=== PATIENT | male | born 1960 | race Caucasian/White ===

== ENCOUNTER 2024-07-14 00:46 | Emergency (ER) | payer BC, SELFPAY ==
[2024-07-14 01:02] VITALS: BP 142/75
[2024-07-14 01:22] LABS: % Basophils 0.2 % (0-2); % Eosinophils 0.1 % (0-6); % Immature Granulocytes 0.5 % (0-0.5); % Lymphocytes 7.5 % (20.5-51.1); % Monocytes 8.9 % (1.7-9.3); % Neutrophils 82.8 % (42.2-75.2); Absolute Immature Granulocytes 0.1 10^3/uL (0-0.05); Absolute Lymphocytes 1.1 10^3/uL (1.2-3.4); Absolute Monocytes 1.3 10^3/uL (0.1-0.6); Absolute Neutrophils 12.1 10^3/uL (1.4-6.5); Hematocrit 41.8 % (39.0-52.0); Hemoglobin 14.6 g/dL (13.0-18.0); Mean Corp Hgb Conc. 34.9 g/dL (33.0-37.0); Mean Corpuscular Hgb 30.2 pg (27.0-31.0); Mean Corpuscular Volume 86.5 fL (80.0-94.0); Mean Platelet Volume 10.1 fL (7.4-10.4); Nucleated Red Blood Cells % 0 % (-); Platelet Count 189 10^3/uL (130-400); Red Blood Cell Count 4.83 10^6/uL (4.70-6.10); Red Cell Dist. Width 12.2 % (11.5-14.5); White Blood Cell Count 14.6 10^3/uL (4.8-10.8)
[2024-07-14 01:41] LABS: ALT (SGPT) 23 U/L (0-50); AST (SGOT) 24 U/L (17-59); Albumin 4.2 g/dl (3.5-5.0); Alkaline Phosphatase 69 U/L (38-126); Blood Urea Nitrogen 18 mg/dl (9-20); Calcium 9.3 mg/dl (8.4-10.2); Carbon Dioxide 28 mmol/L (22-30); Chloride 101 mmol/L (98-107); Glucose 128 mg/dl (70-99); Lipase 58 U/L (23-300); Potassium 4.4 mmol/L (3.5-5.1); Sodium 137 mmol/L (135-145); Total Bilirubin 1.7 mg/dl (0.2-1.3); eGFR > 60.00
--- NOTE | 2024-07-14 02:05 | ED.GENMED ---
History of Present Illness
General
Chief Complaint: Abdominal Pain
Source: patient and family
Exam Limitations: none
Time Seen by Provider: 07/14/24 02:05
Nursing documentation reviewed up to this point in time: agreed with
History of Present Illness
History of Present Illness:
Pleasant 64-year-old male presents the emergency department with left lower quadrant abdominal pain. He initially awakened this morning with the pain and it waxed and waned throughout the day states that she. He had 1 episode of diarrhea which was
nonbloody but that did not alleviate or exacerbate the symptoms he has no nausea vomiting patient has been feeling warm and flushed. Denies history of kidney stones. States he has never had pain like this before he states that it feels sharp when
he presses on his mid lateral abdomen. Denies chest pain or shortness of breath.
Patient has a past medical history significant only for subarachnoid hemorrhage.
Past History
Past History
ED Past Medical History: None
ED Past Surgical History: Other (Sinus surgery)
Social History
Tobacco: Non-smoker
Alcohol: Occasional
Drug: None
Personal:
Living: with family
Employment: Employed
Family History
Family History: Other
Review of Systems
Review of Systems
Allergies reviewed?: Yes
Other source history: family
All Other Systems: ROS reviewed and negative except as documented in HPI and ROS
Constitutional: Reports no symptoms
EENT: Reports no symptoms
Respiratory: Reports no symptoms
Cardiac: Reports no symptoms
ABD/GI: Reports abdominal pain and diarrhea; Denies nausea, vomiting, constipated, bloody stools or black stools
: Reports no symptoms
Musculoskeletal: Reports no symptoms
Skin: Reports no symptoms
Neurological: Reports no symptoms
Endocrine: Reports no symptoms
Hematologic/Lymphatic: Reports no symptoms
Psychiatric: Reports no symptoms
Phy Exam
General Physical Exam
General Presentation: well appearing and no apparent distress
General Skin: warm and dry
General Habitus: normal
General Mental: alert
General Hydration: appears well hydrated
ENT Exam
ENT Exam: EOMI, pharynx normal, neck supple and normocephalic
Eye Exam
Eye Exam: PERRL, cornea clear and conjunctiva normal
Cardiovascular Exam
Cardiovascular Exam: regular rate/rhythm, no edema, no murmur and normal peripheral pulses
Pulmonary Exam
Pulmonary Exam: lungs clear, no respiratory distress, no rales, no crackles, no rhonchi, no stridor, no wheezing and no cough
Gastrointestinal Exam
Gastrointestinal Exam: normal bowel sounds, non tender, soft, no organomegaly, no pulsatile mass, non distended and no cva tenderness
Neurological Exam
Neurological Exam: alert, oriented x3, no motor deficits and speech normal
Musculoskeletal Exam
Musculoskeletal Exam: full ROM and no edema
Skin Exam
Skin Exam: normal color, warm/dry, no rash and no petechia
Psychiatric Exam
Psychiatric Exam: normal mood/affect
Course
Orders/Labs/Results
Orders:
Orders
07/14/24 01:09
IV Insert/Care/Rem.- Treatment PRN
07/14/24 01:15
Complete Blood Count/With Diff Urgent
Comprehensive Metabolic Panel Urgent
Lipase Urgent
Urinalysis Reflex To Culture Urgent
Date Specimen was Collected: 07/14/24
Time Specimen was Collected: 01:09
07/14/24 02:06
CT Abd/pelvis W Iv Cont Urgent
Comment:
Reason For Exam: LLQ pain
07/14/24 02:15
Ketorolac [Toradol] 15 mg IV NOW STA
Abnormal Lab Results
07/14/24
01:15
WBC 14.6 H 10^3/uL
(4.8-10.8)
Abs Immat Gran (auto) 0.1 H 10^3/uL
(0-0.05)
Absolute Neuts (auto) 12.1 H 10^3/uL
(1.4-6.5)
Absolute Lymphs (auto) 1.1 L 10^3/uL
(1.2-3.4)
Absolute Monos (auto) 1.3 H 10^3/uL
(0.1-0.6)
Neutrophils % 82.8 H %
(42.2-75.2)
Lymphocytes % 7.5 L %
(20.5-51.1)
Glucose 128 H mg/dl
(70-99)
Total Bilirubin 1.7 H mg/dl
(0.2-1.3)
07/14/24 01:15
07/14/24 01:15
Vital Signs
Initial and Last Documented VS:
Initial Vital Signs
Temp Pulse Resp BP Pulse Ox
100.2 F 88 20 142/75 99
07/14/24 01:02 07/14/24 01:02 07/14/24 01:02 07/14/24 01:02 07/14/24 01:02
Last Documented Vital Signs
Temp Pulse Resp BP Pulse Ox
100.2 F 70 18 140/77 98
07/14/24 01:02 07/14/24 04:32 07/14/24 04:32 07/14/24 03:00 07/14/24 04:32
*Critical Care Note
Total Time (30-74mins, 75-104mins- exclusive of procedures): Not Applicable
Update Note
Update Note:
CT ABDOMEN PELVIS WITH CONTRAST
COMPARISON: None
IMPRESSION:
Acute diverticulitis of the descending colon with moderate pericolonic inflammation. No perforation or abscess.
Normal appendix. No bowel obstruction. No free air.
The distal part of a presumed ventriculoperitoneal shunt has its tip in the right paracolic gutter.
No obstructive uropathy.
No concerning bone finding.
Case results were faxed/electronically transmitted at [id number] EST. If there are any questions please feel free to contact me directly at [phone], ext [phone]. If you cannot reach me at this number, do not leave a voicemail. Please call [phone]
ext [phone] and ask for the next available radiologist.
ED Attending Note
-
Portions of this chart may have been created with voice recognition software.� Occasional wrong word or��sound alike� substitutions may have occurred due to the inherent limitations of voice recognition software.
Discharge Plan
Departure
Patient Disposition: Home (Routine Discharge)
Date of Disposition: 07/14/24
Time of Disposition: 04:56
Patient with high blood pressure during this ER visit?: Yes
Discharge Problem:
Diverticulitis
Instructions: Diverticulitis (DC), Abdominal Pain
Prescriptions:
New
amoxicillin-pot clavulanate 875-125 mg tablet
1 tab PO BID Qty: 20 0RF
Referrals:
Shantell Kenney MD [Family Provider] -
Activity Restrictions/Additional Instructions:
It was a pleasure meeting you and taking part in your care. We hope for your continued healing and wellness.
Please read discharge instructions in their entirety. However, they are for general education and may not describe your exact diagnosis at discharge. Information on your ER visit and medical conditions were discussed with you along with appropriate
follow up information...
If indicated, please take your medications as instructed and indicated on discharge paperwork.
Please schedule a follow up appointment as directed. Call to schedule an appointment
Please return to the emergency department with ANY change in, persisting, or worsening of symptoms. If any of your symptoms do not improve, or persist, or become more severe within 6-12 hours, please return to the emergency department for further
care.
Please return to the emergency department if you develop a headache, neck pain/stiffness, fever greater than 100.4F, chest pain, shortness of breath, persistent nausea, vomiting, slurred speech, difficulty walking, numbness/tingling, weakness, signs
of infection or any other symptoms that are worrisome to you.
If you have any questions or concerns please do not hesitate to call the Hospital at or E-mail me directly at [email or web address]
Interventions
Interventions:
*Risk Screen - Suicide Last Done: 07/14/24 01:02
*General Assessment Last Done: 07/14/24 01:02
*Neglect/Abuse Screening Last Done: 07/14/24 01:02
ED- Fall Risk Assessment Last Done: 07/14/24 01:02
*ED COVID-19 Vaccine History Last Done: 07/14/24 01:02
EC-Vfphpr-Bgxwygkpee Assessment Last Done: 07/14/24 02:15
Discharge Date and Time
Print Language: BELIZEAN
[2024-07-14 02:14] VITALS: BMI 30.3
[2024-07-14] MEDS: TORADOL 15 MG IV (02:21)
[2024-07-14 02:25] VITALS: BP 150/82
[2024-07-14 03:00] VITALS: BP 140/77
[2024-07-14 03:09] LABS: Urine Albumin Negative (Neg - Trace); Urine Bilirubin Negative (Negative); Urine Character Clear (Clear); Urine Color Yellow; Urine Glucose Negative (Negative); Urine Ketone Negative (Negative); Urine Leukocyte Negative (Negative); Urine Nitrite Negative (Negative); Urine Occult Blood Negative (Negative); Urine Urobilinogen Negative (Neg - 1+)
[2024-07-14 04:20] VITALS: BP 141/68
[2024-07-14 05:00] VITALS: BP 139/75
[2024-07-14] MEDS: AUGMENTIN 875 MG/125 MG 1 TABLET PO (05:16)
== END 2024-07-14 05:25 | disposition home or self-care (01) ==
LOC: EMR 00:46
PROVIDERS: EMERGENCY PHYSICIAN Student in an Organized Health Care Education/Training Program; FAMILY PHYSICIAN Family Medicine
DX: K57.32 Diverticulitis of large intestine without perforation or abscess without bleeding (principal); R03.0 Elevated blood-pressure reading, without diagnosis of hypertension
CPT/HCPCS: 74177; 80053; 81003; 83690; 85025; 96374; 99284; Q9967

== ENCOUNTER 2024-07-15 04:27 | Inpatient (IN) | payer BC, SELFPAY ==
[2024-07-14 19:30] VITALS: BP 148/88
[2024-07-14 19:50] LABS: % Basophils 0.3 % (0-2); % Eosinophils 0.5 % (0-6); % Immature Granulocytes 0.1 % (0-0.5); % Lymphocytes 9.6 % (20.5-51.1); % Monocytes 3.3 % (1.7-9.3); % Neutrophils 86.2 % (42.2-75.2); Absolute Lymphocytes 0.7 10^3/uL (1.2-3.4); Absolute Monocytes 0.3 10^3/uL (0.1-0.6); Absolute Neutrophils 6.5 10^3/uL (1.4-6.5); Hematocrit 40.9 % (39.0-52.0); Hemoglobin 14.2 g/dL (13.0-18.0); Mean Corp Hgb Conc. 34.7 g/dL (33.0-37.0); Mean Corpuscular Hgb 30.1 pg (27.0-31.0); Mean Corpuscular Volume 86.8 fL (80.0-94.0); Mean Platelet Volume 9.9 fL (7.4-10.4); Nucleated Red Blood Cells % 0 % (-); Platelet Count 163 10^3/uL (130-400); Red Blood Cell Count 4.71 10^6/uL (4.70-6.10); Red Cell Dist. Width 12.4 % (11.5-14.5); White Blood Cell Count 7.5 10^3/uL (4.8-10.8)
[2024-07-14 20:07] LABS: ALT (SGPT) 23 U/L (0-50); AST (SGOT) 24 U/L (17-59); Albumin 4.2 g/dl (3.5-5.0); Alkaline Phosphatase 61 U/L (38-126); Blood Urea Nitrogen 17 mg/dl (9-20); Calcium 8.7 mg/dl (8.4-10.2); Carbon Dioxide 30 mmol/L (22-30); Chloride 96 mmol/L (98-107); Glucose 123 mg/dl (70-99); Potassium 3.8 mmol/L (3.5-5.1); Sodium 135 mmol/L (135-145); Total Bilirubin 2.5 mg/dl (0.2-1.3); Total Protein 6.6 g/dl (6.3-8.2); eGFR > 60.00
--- NOTE | 2024-07-14 20:28 | ED.GENMED ---
Addendum entered and electronically signed by Ilia Easley DO 07/15/24 01:43:
CRITICAL CARE STATEMENT: A total of 20 minutes of critical care time was provided for this patient. This includes management of unstable vital signs, evaluation of the patient at bedside, reviewing the patient's pertinent medical records discussion
with EMS providers and patient's family in addition to discussion with consultants, review of old EKGs and review of pertinent medical records. This time with separate from time utilized to perform the aforementioned documented procedures
Original Note:
History of Present Illness
<Araceli Middleton NP - Last Filed: 07/15/24 00:45>
General
Chief Complaint: Abdominal Pain
Source: patient
Exam Limitations: none
Time Seen by Provider: 07/14/24 20:21
Nursing documentation reviewed up to this point in time: agreed with
History of Present Illness
History of Present Illness:
Patient to ED with complaint of bilateral lower abd. pain. He was seen her last PM for LLQ ppain and dx with diverticulitis. States tonight he felt like he needed to pass stool but was unable to. Pain then became much worse. States he became
diaphoretic and felt like he was going to pass out. Pain is now located acrosss lower abd. Brought to ED by spouse for eval.
Past History
<Araceli Middleton NP - Last Filed: 07/15/24 00:45>
Past History
ED Past Medical History: None
ED Past Surgical History: Other (Sinus surgery)
Social History
Tobacco: Non-smoker
Alcohol: Occasional
Drug: None
Personal:
Living: with family
Employment: Employed
Family History
Family History: Other
Review of Systems
<Araceli Middleton NP - Last Filed: 07/15/24 00:45>
Review of Systems
Allergies reviewed?: Yes
All Other Systems: ROS reviewed and negative except as documented in HPI and ROS
Constitutional: Reports no symptoms
EENT: Reports no symptoms
Respiratory: Reports no symptoms
Cardiac: Reports no symptoms
ABD/GI: Reports abdominal pain and nausea
: Reports no symptoms
Musculoskeletal: Reports no symptoms
Skin: Reports no symptoms
Neurological: Reports no symptoms
Psychiatric: Reports no symptoms
Phy Exam
<Araceli Middleton TAKE DOWN INSPECTOR - Last Filed: 07/15/24 00:45>
General Physical Exam
General Presentation: well appearing and no apparent distress
General age: appears stated age
General Skin: warm and dry
General Habitus: normal
Cardiovascular Exam
Cardiovascular Exam: regular rate/rhythm and no edema
Pulmonary Exam
Pulmonary Exam: lungs clear and no respiratory distress
Gastrointestinal Exam
Gastrointestinal Exam: normal bowel sounds, no pulsatile mass and guarding
Palpation: left upper quadrant: Minimal tenderness, left lower quadrant: Severe tenderness, right upper quadrant: Minimal tenderness and right lower quadrant: Severe tenderness
Musculoskeletal Exam
Musculoskeletal Exam: full ROM and neuro vasc intact
Skin Exam
Skin Exam: normal color, warm/dry and no rash
Psychiatric Exam
Psychiatric Exam: normal mood/affect
Course
<Araecli Middleton TAKE DOWN INSPECTOR - Last Filed: 07/15/24 00:45>
Orders/Labs/Results
Orders:
Orders
07/14/24 19:33
ECG [Electrocardiogram (*1)] Urgent
Reason for Study: Abdominal Pain
EKG- Treatment ONCE
07/14/24 19:45
Complete Blood Count/With Diff Urgent
Comprehensive Metabolic Panel Urgent
Lipase Urgent
Comment: ADDON
07/14/24 20:27
0.9% Sodium Chloride 1000 ml [Nss] 1,000 ml IV BOLUS
HYDROmorphone [Dilaudid] 0.5 mg IV NOW STA
Iohexol [Omnipaque] See Protocol PO NOW STA
Ondansetron Injectable [Zofran] 4 mg IV NOW STA
07/14/24 20:43
CT Abd/pelvis W Iv Cont Urgent
Comment:
Reason For Exam: bilateral lower abd pain, rigid abd.
07/14/24 21:21
Add On- LAB Urgent
Tests Added?: Lipase
07/14/24 22:03
Piperacillin/Tazo 3.375 Gram [Zosyn] 3.375 gram in 50 ml IV NOW
07/14/24 22:45
0.9% Sodium Chloride 1000 ml [Nss] 1,000 ml IV 125 mls/hr
07/14/24 23:24
Dexamethasone Sod Phosphate [Decadron] 20 mg .ROUTE .STK-MED ONE
Fentanyl Citrate/Pf [Sublimaze] 100 mcg .ROUTE .STK-MED ONE
Lidocaine 2% Mpf [Xylocaine Mpf 2%] 100 mg .ROUTE .STK-MED ONE
Midazolam HCl [Versed] 2 mg .ROUTE .STK-MED ONE
Ondansetron Injectable [Zofran] 4 mg .ROUTE .STK-MED ONE
Propofol [Diprivan] 20 ml .ROUTE .STK-MED
Rocuronium [place] [Rocuronium] 50 mg .ROUTE .STK-MED ONE
07/14/24 23:47
Bupivacaine Mpf 0.25% [Sensorcaine-Mpf 0.25% Vial] 60 ml .ROUTE .STK-MED ONE
Dexamethasone Pf [Decadron] 10 mg .ROUTE .STK-MED ONE
07/15/24 00:04
NORepinephrine 4 MG/250 ML [Levophed] 4 mg in 250 ml .ROUTE .STK-MED
07/15/24 00:09
Rocuronium [place] [Rocuronium] 50 mg .ROUTE .STK-MED ONE
07/15/24 00:10
Ketamine 5 ml .ROUTE .STK-MED
07/15/24 00:23
HYDROmorphone [Dilaudid] 0.25 mg IV PACU-Q5MPRN PRN
HYDROmorphone [Dilaudid] 0.5 mg IV PACU-Q5MPRN PRN
Meperidine [Demerol] 12.5 mg IV PACU-Q5MPRN PRN
Ondansetron Injectable [Zofran] 4 mg IV PACU-ONCEPRN PRN
Prochlorperazine [Compazine] 5 mg IV PACU-ONCEPRN PRN
Notify MD As Directed
Notify physician if: for SDS patients with known or suspected sleep obstructive sleep apnea, monitor in the
PACU.
Notify MD for any apneic/desaturation episodes
O2 Therapy [RESP] Urgent
Titrate/Wean O2 to maintain O2 sat greater than (%): 92
Special Instructions: -Provide supplemental oxygen to achieve O2 sat of 92% or greater.
-After 15 min, may wean O2 and discontinue if patient is able to maintain O2 sat of 92%
or greater during recovery period.
If patient is a discharge home, without oxygen therapy, notify anestheiologist if
unable to maintain O2 SAT of 92% or greater on room air for MD clearance.
07/15/24 00:26
HYDROmorphone [Dilaudid] 1 mg .ROUTE .STK-MED ONE
07/15/24 00:30
Normosol (Mult Electrolytes) [Normosol-R/Plasmalyte-A] 1,000 ml IV PER PROTOCOL
Abnormal Lab Results
07/14/24
19:45
Absolute Lymphs (auto) 0.7 L 10^3/uL
(1.2-3.4)
Neutrophils % 86.2 H %
(42.2-75.2)
Lymphocytes % 9.6 L %
(20.5-51.1)
Chloride 96 L mmol/L
(98-107)
Glucose 123 H mg/dl
(70-99)
Total Bilirubin 2.5 H mg/dl
(0.2-1.3)
07/14/24 19:45
07/14/24 19:45
Vital Signs
Initial and Last Documented VS:
Initial Vital Signs
Temp Pulse Resp BP Pulse Ox
98 F 72 22 148/88 100
07/14/24 19:30 07/14/24 19:30 07/14/24 19:30 07/14/24 19:30 07/14/24 19:30
Last Documented Vital Signs
Temp Pulse Resp BP Pulse Ox
98 F 87 16 121/74 96
07/14/24 19:30 07/14/24 23:27 07/14/24 23:27 07/14/24 23:00 07/14/24 23:30
<Ilia Easley, DO - Last Filed: 07/14/24 22:24>
Orders/Labs/Results
Orders:
Orders
07/14/24 19:33
ECG [Electrocardiogram (*1)] Urgent
Reason for Study: Abdominal Pain
EKG- Treatment ONCE
07/14/24 19:45
Complete Blood Count/With Diff Urgent
Comprehensive Metabolic Panel Urgent
Lipase Urgent
Comment: ADDON
07/14/24 20:27
0.9% Sodium Chloride 1000 ml [Nss] 1,000 ml IV BOLUS
HYDROmorphone [Dilaudid] 0.5 mg IV NOW STA
Iohexol [Omnipaque] See Protocol PO NOW STA
Ondansetron Injectable [Zofran] 4 mg IV NOW STA
07/14/24 20:43
CT Abd/pelvis W Iv Cont Urgent
Comment:
Reason For Exam: bilateral lower abd pain, rigid abd.
07/14/24 21:21
Add On- LAB Urgent
Tests Added?: Lipase
07/14/24 22:03
Piperacillin/Tazo 3.375 Gram [Zosyn] 3.375 gram in 50 ml IV NOW
07/14/24 22:45
0.9% Sodium Chloride 1000 ml [Nss] 1,000 ml IV 125 mls/hr
07/14/24 23:24
Dexamethasone Sod Phosphate [Decadron] 20 mg .ROUTE .STK-MED ONE
Fentanyl Citrate/Pf [Sublimaze] 100 mcg .ROUTE .STK-MED ONE
Lidocaine 2% Mpf [Xylocaine Mpf 2%] 100 mg .ROUTE .STK-MED ONE
Midazolam HCl [Versed] 2 mg .ROUTE .STK-MED ONE
Ondansetron Injectable [Zofran] 4 mg .ROUTE .STK-MED ONE
Propofol [Diprivan] 20 ml .ROUTE .STK-MED
Rocuronium [place] [Rocuronium] 50 mg .ROUTE .STK-MED ONE
07/14/24 23:47
Bupivacaine Mpf 0.25% [Sensorcaine-Mpf 0.25% Vial] 60 ml .ROUTE .STK-MED ONE
Dexamethasone Pf [Decadron] 10 mg .ROUTE .STK-MED ONE
07/15/24 00:04
NORepinephrine 4 MG/250 ML [Levophed] 4 mg in 250 ml .ROUTE .STK-MED
07/15/24 00:09
Rocuronium [place] [Rocuronium] 50 mg .ROUTE .STK-MED ONE
07/15/24 00:10
Ketamine 5 ml .ROUTE .STK-MED
07/15/24 00:23
HYDROmorphone [Dilaudid] 0.25 mg IV PACU-Q5MPRN PRN
HYDROmorphone [Dilaudid] 0.5 mg IV PACU-Q5MPRN PRN
Meperidine [Demerol] 12.5 mg IV PACU-Q5MPRN PRN
Ondansetron Injectable [Zofran] 4 mg IV PACU-ONCEPRN PRN
Prochlorperazine [Compazine] 5 mg IV PACU-ONCEPRN PRN
Notify MD As Directed
Notify physician if: for SDS patients with known or suspected sleep obstructive sleep apnea, monitor in the
PACU.
Notify MD for any apneic/desaturation episodes
O2 Therapy [RESP] Urgent
Titrate/Wean O2 to maintain O2 sat greater than (%): 92
Special Instructions: -Provide supplemental oxygen to achieve O2 sat of 92% or greater.
-After 15 min, may wean O2 and discontinue if patient is able to maintain O2 sat of 92%
or greater during recovery period.
If patient is a discharge home, without oxygen therapy, notify anestheiologist if
unable to maintain O2 SAT of 92% or greater on room air for MD clearance.
07/15/24 00:26
HYDROmorphone [Dilaudid] 1 mg .ROUTE .STK-MED ONE
07/15/24 00:30
Normosol (Mult Electrolytes) [Normosol-R/Plasmalyte-A] 1,000 ml IV PER PROTOCOL
Abnormal Lab Results
07/14/24
19:45
Absolute Lymphs (auto) 0.7 L 10^3/uL
(1.2-3.4)
Neutrophils % 86.2 H %
(42.2-75.2)
Lymphocytes % 9.6 L %
(20.5-51.1)
Chloride 96 L mmol/L
(98-107)
Glucose 123 H mg/dl
(70-99)
Total Bilirubin 2.5 H mg/dl
(0.2-1.3)
07/14/24 19:45
07/14/24 19:45
Vital Signs
Initial and Last Documented VS:
Initial Vital Signs
Temp Pulse Resp BP Pulse Ox
98 F 72 22 148/88 100
07/14/24 19:30 07/14/24 19:30 07/14/24 19:30 07/14/24 19:30 07/14/24 19:30
Last Documented Vital Signs
Temp Pulse Resp BP Pulse Ox
98 F 87 16 121/74 96
07/14/24 19:30 07/14/24 23:27 07/14/24 23:27 07/14/24 23:00 07/14/24 23:30
<Araceli Middleton NP - Last Filed: 07/15/24 00:45>
*Critical Care Note
Total Time (30-74mins, 75-104mins- exclusive of procedures): Not Applicable
<Araceli Middleton NP - Last Filed: 07/15/24 00:45>
Update Note
Update Note:
Patient to ED with sudden onset of worsening lower abd. pain. Diagnosed with diverticulitis yesterday. Abdomen tonight is distended and rigid. Sent for repeat scan which reveals pneumoperitoneum. IV antibiotics started. Dr. Myers notified and
will be in. Patient to OR tonight.
ED Attending Note
<Araceli Middleton NP - Last Filed: 07/15/24 00:45>
-
Portions of this chart may have been created with voice recognition software.� Occasional wrong word or��sound alike� substitutions may have occurred due to the inherent limitations of voice recognition software.
<Ilia Easley DO - Last Filed: 07/14/24 22:24>
ED Attending Note
Patient seen and examined by attending physician: Yes
I performed the substantive portion of visit, reviewed & personally made and approve the management plan that is documented in note by myself or RAMAN.: Yes
ED Attending Note:
Seen with TAKE DOWN INSPECTOR examined independently 64-year-old male second visit with abdominal pain diagnosed diverticulitis recently, placed on Augmentin had increased pain after bowel movement here is distended decreased bowel sounds diffuse pain labs and CT
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
Discharge Plan
Departure
Patient Disposition: OR
Date of Disposition: 07/14/24
Time of Disposition: 22:46
Presentation/result/management discussed w/ accepting MD/DO: Louis
Patient with high blood pressure during this ER visit?: Yes
Condition: Fair
Covid-19: Not Applicable
Discharge Problem:
Diverticulitis, Pneumoperitoneum
Prescriptions:
No Action
amoxicillin-pot clavulanate 875-125 mg tablet
1 tab PO BID Qty: 20 0RF
acetaminophen [Tylenol Extra Strength] 500 mg Tablet
500 mg PO Q6HPRN PRN (Reason: mild pain)
ferrous sulfate 325 mg (65 mg iron) Tablet
325 mg PO DAILY
ibuprofen [Advil] 200 mg Tablet
400 mg PO Q6HPRN PRN (Reason: mild pain)
omega 9-hyw-udz-fish oil [Fish Oil] 1,000 (120-180) mg Capsule
1 cap PO DAILY
Referrals:
Shantell Kenney MD [Family Provider] -
Interventions
Interventions:
*Risk Screen - Suicide Last Done: 07/14/24 19:30
*General Assessment Last Done: 07/14/24 20:52
*Neglect/Abuse Screening Last Done: 07/14/24 19:30
ED- Fall Risk Assessment Last Done: 07/14/24 20:52
*ED COVID-19 Vaccine History Last Done: 07/14/24 20:52
YK-Cekkmg-Lnbbvbtfme Assessment Last Done: 07/14/24 21:35
ED- Cardiac Assessment Last Done: 07/14/24 21:35
ED- Neurological Assessment Last Done: 07/14/24 21:35
Discharge Date and Time
Print Language: CHINESE
[2024-07-14] MEDS: DILAUDID 0.5 MG IV (20:48)
[2024-07-14] MEDS: NSS 1000 IV ×2 (20:48→22:50)
[2024-07-14] MEDS: ZOFRAN 4 MG IV (20:48)
[2024-07-14 20:51] VITALS: BP 124/79
[2024-07-14 20:52] VITALS: BMI 31.0
[2024-07-14 21:00] VITALS: BP 123/86
[2024-07-14 21:54] LABS: Lipase 42 U/L (23-300)
[2024-07-14 22:00] VITALS: BP 124/75
[2024-07-14] MEDS: ZOSYN 50 IV (22:09)
[2024-07-14 23:00] VITALS: BP 121/74
[2024-07-15] VITALS (16 sets, daily range): BP systolic 85–152; BP diastolic 65–97
--- NOTE | 2024-07-15 00:06 | W.PN.ADMIT ---
Progress Note - Admit
Progress Note - Admit
Full admit to be dictated.
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 Lower abdominal guarding
on exam. Discussed situation with patient and his family. Recommended trip to OR for exploratory laparotomy and probable Stefany's resection. Operation discussed including alternatives, risks and benefits. Risks covered include bleeding,
infection, ureteral injury, anastomotic issue (if created), rectal stump leak (if created), hernia, bowel or solid organ injury, nerve injury, urinary or sexual dysfunction, meningitis, hernia, recurrence and anesthetic risks. He agreed to proceed.
All questions answered.
--- NOTE | 2024-07-15 03:19 | W.IMMPOSTOP ---
Surgical Immed Post Op Note
-
Primary Surgeon: Ada Myers MD
Assisting Surgeon: none
Pre-op Diagnosis: perforated descending colon diverticultis
Post-op Diagnosis: same
Procedure Performed: 1) Stefany's resection (resection of descending and proximal sigmoid with colostomy creation) 2) takedown splenic flexure
Anesthesia Type: general plus local
Specimen / Cultures: 1) abdominal fluid cultures 2) descending colon and proximal sigmoid with stitch marking perforation
Estimated Blood Loss: 150 cc
Complications: no immediate
Operative Findings: 1) perforated descending colon and associated mucopurulent peritonitis 2) tubing of JEWELRY SALES COORDINATOR shunt in R sided peritoneal space
#19 Jesús in pelvis.
NGT in stomach (confirmed).
Zelaya in bladder.
Will send to med surg.
Will continue antibiotics.
[2024-07-15] MEDS: TORADOL 10 MG IV ×4 (03:51→21:58)
[2024-07-15] MEDS: ZOSYN 50 IV ×4 (03:55→21:59)
[2024-07-15] MEDS: DILAUDID 0.5 MG IV ×2 (04:08→12:25)
[2024-07-15] MEDS: NORMOSOL-R/PLASMALYTE-A 1000 IV ×2 (04:36→12:24)
[2024-07-15 05:05] LABS: Hematocrit 38.6 % (39.0-52.0); Hemoglobin 13.4 g/dL (13.0-18.0); Mean Corp Hgb Conc. 34.7 g/dL (33.0-37.0); Mean Corpuscular Hgb 30.4 pg (27.0-31.0); Mean Corpuscular Volume 87.5 fL (80.0-94.0); Mean Platelet Volume 10.2 fL (7.4-10.4); Platelet Count 176 10^3/uL (130-400); Red Blood Cell Count 4.41 10^6/uL (4.70-6.10); Red Cell Dist. Width 12.4 % (11.5-14.5); White Blood Cell Count 7.1 10^3/uL (4.8-10.8)
--- NOTE | 2024-07-15 05:09 | PTCARENOTE ---
Rec'd pt from PACU RNs. Pt AAOx3 but drowsy. 92% on RA, VSS at this time. Normosol running at 100ml/hr through L hand IV. L colostomy present with budded, red stoma and small smear of stool in bag. RLQ ASHLEE present with some serosanguinous drainage in
bulb. Zelaya catheter present. NGT present, placed to LIS. Pt c/o sinus congestion, education provided on NGT. Midline abdominal aquacell intact with small amount of shadowing present, confirmed that this is unchanged with previous RN. Call coelho
within reach. Care ongoing.
[2024-07-15 05:15] LABS: Blood Urea Nitrogen 12 mg/dl (9-20); Calcium 7.2 mg/dl (8.4-10.2); Carbon Dioxide 22 mmol/L (22-30); Chloride 104 mmol/L (98-107); Estimated Creatinine Clearance 99 ml/min; Glucose 162 mg/dl (70-99); Potassium 4.3 mmol/L (3.5-5.1); Sodium 134 mmol/L (135-145); eGFR > 60.00
[2024-07-15] MEDS: OFIRMEV IV (05:16)
[2024-07-15 06:25] LABS: % Basophils 0.3 % (0-2); % Immature Granulocytes 0.3 % (0-0.5); % Lymphocytes 4.9 % (20.5-51.1); % Monocytes 4.8 % (1.7-9.3); % Neutrophils 89.7 % (42.2-75.2); Absolute Lymphocytes 0.4 10^3/uL (1.2-3.4); Absolute Monocytes 0.3 10^3/uL (0.1-0.6); Absolute Neutrophils 6.4 10^3/uL (1.4-6.5); Nucleated Red Blood Cells % 0 % (-)
[2024-07-15] MEDS: NSS IV (09:04)
--- NOTE | 2024-07-15 09:04 | W.PN.CRS1 ---
Today's Communication / Plan
-
Continue NG tube and await bowel function
Out of bed
Wound RN
IV antibiotics
Assessment/Plan
-
POD#1 1) Stefany's resection (resection of descending and proximal sigmoid with colostomy creation) 2) takedown splenic flexure
-Trend labs and vitals
-Out of bed as tolerated with PT. Okay to clamp NG tube while out of bed for 30 minutes.
-OR pathology pending
-Teds and SCDs in place for DVT prophylaxis. Will hold on Lovenox today given that he had surgery a few hours ago. Will reevaluate tomorrow.
-Continue IV antibiotics
-NG tube until bowel function
-Continue Zelaya
-ASHLEE drain in place, will remove prior to discharge
-NPO. Okay for ice chips. IV fluids.
-OR cultures pending
-Wound RN for ostomy care and teaching
Subjective Data
Procedure
07/04/2024 - 1) Stefany's resection (resection of descending and proximal sigmoid with colostomy creation) 2) takedown splenic flexure
Subjective Data
Date of Service: July 15, 2024
Patient states he feels better than he did prior to surgery. He denies nausea or vomiting. He has some abdominal pain but it is controlled. He has no other complaints.
Objective Data
-
Vital Signs
Temp Pulse Resp BP Pulse Ox
98.4 F 63 18 147/89 93
07/15/24 07:54 07/15/24 08:03 07/15/24 08:03 07/15/24 08:03 07/15/24 08:03
Intake & Output
07/14/24 07/15/24 07/16/24
06:59 06:59 06:59
Intake Total 100 / 100
Output Total 795 / 795 135 / 135
Balance -695 / -695 -135 / -135
Intake:
IV fluids (Total) 100 / 100
normosol 100 / 100
Output:
Drain Output (Total) 135 / 135
Right Lower Abdomen Burke- 135 / 135
Jerry
Urine, Zelaya 710 / 710
Lab Results
07/15/24 04:44
07/15/24 04:44
Physical Exam
-
General: No Acute Distress and AOx3
Abdomen: Soft, Non Distended, Tender (Around incisions) and Other (Colostomy warm and pink, ASHLEE drain bloody/serous)
Skin: Warm and Dry
Wound: Dressing in Place
[2024-07-15] MEDS: OFIRMEV 100 IV ×3 (09:08→22:30)
[2024-07-15] MEDS: NSS (PRESERVATIVE FREE) 10 ML IV (09:08)
[2024-07-15] MEDS: PROTONIX IV 40 MG IV (09:08)
--- NOTE | 2024-07-15 14:21 | WOUNDNOTE ---
REYNALDO RN note: Patient s/p ostomy surgery
See H&P for complete history.
PMH: diverticulitis.
Ostomy location and type: Colostomy, Palacio's for perforated diverticulitis.
Instructed patient and at bedside, ostomy pouch emptying, skin care and reviewed Colostomy folder.
Aware will follow for appliance change and teaching toward end of the week. will be available for teaching.
Stoma pink and slightly budded, no leakage.
[place] wafer # [id number] and [place] pouch # [id number] in use.
Ostomy supplies ordered from [facility] and asked nurse to bring to bedside.
Note to case management: VN services recommended for ostomy teaching.
Nursing care plan updated, will follow as needed.
--- NOTE | 2024-07-15 17:23 | PTCARENOTE ---
Pt arrived to 2 South from IMU. Pt walked from stretcher to the bed assist x 1. Pt AAOx3, states pain 07/14. Zelaya draining yellow urine, R ASHLEE draining serosanguineous fluid, L colostomy with scant amount of bloody drainage, midline dressing with
small amount of old drainage. Oriented to call coelho and room, bed locked and in lowest position, call coelho within reach.
[2024-07-15] MEDS: DILAUDID 0.25 MG IV (20:43)
[2024-07-16] MEDS: NORMOSOL-R/PLASMALYTE-A 1000 IV ×3 (00:23→22:01)
[2024-07-16 03:00] VITALS: BP 158/87
[2024-07-16] MEDS: ZOSYN 50 IV ×4 (03:10→22:01)
[2024-07-16] MEDS: TORADOL 10 MG IV ×4 (03:11→22:00)
[2024-07-16 05:02] VITALS: BMI 30.3
[2024-07-16 06:25] LABS: % Basophils 0.2 % (0-2); % Immature Granulocytes 0.3 % (0-0.5); % Lymphocytes 6.4 % (20.5-51.1); % Monocytes 4.8 % (1.7-9.3); % Neutrophils 88.3 % (42.2-75.2); Absolute Lymphocytes 0.6 10^3/uL (1.2-3.4); Absolute Monocytes 0.4 10^3/uL (0.1-0.6); Absolute Neutrophils 7.7 10^3/uL (1.4-6.5); Hematocrit 39.7 % (39.0-52.0); Hemoglobin 13.7 g/dL (13.0-18.0); Mean Corp Hgb Conc. 34.5 g/dL (33.0-37.0); Mean Corpuscular Volume 86.9 fL (80.0-94.0); Mean Platelet Volume 10.9 fL (7.4-10.4); Nucleated Red Blood Cells % 0 % (-); Platelet Count 186 10^3/uL (130-400); Red Blood Cell Count 4.57 10^6/uL (4.70-6.10); Red Cell Dist. Width 12.5 % (11.5-14.5); White Blood Cell Count 8.7 10^3/uL (4.8-10.8)
[2024-07-16 06:51] LABS: Blood Urea Nitrogen 17 mg/dl (9-20); Calcium 7.7 mg/dl (8.4-10.2); Carbon Dioxide 25 mmol/L (22-30); Chloride 103 mmol/L (98-107); Estimated Creatinine Clearance 78 ml/min; Glucose 134 mg/dl (70-99); Potassium 3.8 mmol/L (3.5-5.1); Sodium 137 mmol/L (135-145); eGFR > 60.00
[2024-07-16 07:15] VITALS: BP 151/85
--- NOTE | 2024-07-16 08:19 | W.PN.CRS1 ---
Today's Communication / Plan
-
maintain ngt
lovenox
d/c randall
Assessment/Plan
-
POD#1 1) Stefany's resection (resection of descending and proximal sigmoid with colostomy creation) 2) takedown splenic flexure
-Trend labs and vitals
-Out of bed as tolerated with PT. Okay to clamp NG tube while out of bed for 30 minutes.
-OR pathology pending
-Teds and SCDs in place for DVT prophylaxis. Lovenox added.
-Continue IV antibiotics
-NG tube until bowel function
-Discontinue randall
-ASHLEE drain in place, will remove prior to discharge
-NPO. Okay for ice chips. IV fluids.
-OR cultures pending
-Wound RN for ostomy care and teaching. Okay to remove midline Aquacel when wafer replaced. Replace with gauze and paper tape.
Subjective Data
Procedure
07/04/2024 - 1) Stefany's resection (resection of descending and proximal sigmoid with colostomy creation) 2) takedown splenic flexure
Subjective Data
Date of Service: July 16, 2024
Patient states he feels 'good'. He denies nasuea or vomiting. His abdominal pain is mild. He had gas in his colostomy bag yesterday. He has not had bowel movements yet.
Objective Data
-
Vital Signs
Temp Pulse Resp BP Pulse Ox
97.6 F 69 18 158/87 94
07/16/24 03:00 07/16/24 03:00 07/16/24 03:00 07/16/24 03:00 07/16/24 03:00
Intake & Output
07/15/24 07/16/24 07/17/24
06:59 06:59 06:59
Intake Total 100 / 100 2930 / 2930
Output Total 795 / 795 2970 / 2970
Balance -695 / -695 -40 / -40
Intake:
IV fluids (Total) 100 / 100 2099 / 2099
normosol 100 / 100
IV piggybacks 650 / 650
Amount instilled into GI Tube ( 180 / 180
Total)
[place] Sump 180 / 180
Output:
Drain Output (Total) 480 / 480
Right Lower Abdomen Burke- 480 / 480
Jerry
Gastrointestinal tube output ( 840 / 840
Total)
[place] Sump 840 / 840
Urine, Randall 710 / 710 1650 / 1650
Lab Results
07/16/24 04:57
07/16/24 04:57
Physical Exam
-
General: No Acute Distress and AOx3
Abdomen: Soft, Non Distended, Non Tender and Other (colostomy warm and pink with flatus in bag)
Wound: Dressing in Place
[2024-07-16] MEDS: PROTONIX IV 40 MG IV (08:59)
[2024-07-16] MEDS: NSS (PRESERVATIVE FREE) 10 ML IV (08:59)
[2024-07-16 15:36] VITALS: BP 158/83
[2024-07-16 16:30] VITALS: BP 162/92; PULSE 64; O2SAT 99
--- NOTE | 2024-07-16 16:44 | CM ---
Met with pt at bedside
Pt reports he lives with his in a 2 story home; 2 steps to enter, 16 steps to 2nd fl, + 1/2 bath on FF
Independent at baseline, employed, drives
DME - CPAP - [facility]
SNF/HH - denies past hx
Has ride at discharge
PCP - Shantell Kenney
Pharm - [facility]
Plan - TBD based on needs - anticipate home with VN
--- NOTE | 2024-07-16 17:37 | CON.ID ---
Consultation
-
Date/Time Consultation Requested: 07/16/2024 1210
Date/Time Consultation Performed: 07/16/2024 1732
Requesting Provider: Rachel Kauffman
Performing Provider: Dr. Foster
Reason for Consultation: Perforated viscus; fecal peritonitis Hx COOK 3 PASTRY shunt
Chief Complaint / Past History
History of Present Illness
Hugo Lainez is a 64-year-old male being evaluated at the request of Rachel Kauffman regarding perforated viscus and fecal peritonitis. History is obtained from chart review, along with patient interview.
The patient is without significant past medical history and initially presented to the emergency room here at [facility] with left lower quadrant discomfort on 07/14/2024. He reports that the pain began that morning and was intermittent
throughout the day. He admitted to 1 episode of diarrhea (nonbloody), but this did not change his symptomatology. He reported he has not had pain and discomfort like this in the past. Evaluation in the ER was unrevealing, and the patient was
discharged to home on Augmentin.
He returned to the ER later that evening for ongoing pain that had become worse. He additionally reports that he became diaphoretic and felt like he was going to pass out while on the commode. Pain at this point in time was now located across his
lower abdomen. Repeat imaging now revealed a perforated distal descending colon diverticulitis with intra-abdominal free air. The patient was evaluated by CRS and taken to the OR for Palacio's resection, colostomy creation. Intraoperative
cultures were obtained and are currently pending. The patient has been started on empiric antibiotics.
The patient has a significant additional past medical history of subarachnoid hemorrhage and COOK 3 PASTRY shunt placement in 2018. He has had no issues with the COOK 3 PASTRY shunt in the interim.
Past History
Additional Past Medical History:
Subarachnoid hemorrhage (2018)
Additional Past Surgical History:
COOK 3 PASTRY shunt placement (2018)
Allergy History:
No Known Allergies Allergy (Verified 07/14/24 19:33)
Medications Reviewed: Yes
Current Antibiotics:
Zosyn 3.375 g IV every 6 hours
Social History
Tobacco: Non-Smoker
Alcohol: Occasional
Drug: None
Personal:
Living: With Family
Employment: Employed
Review of Systems
Review of Systems
General: Negative Fever or Chills
HEENT: Negative Headache
All systems: All other systems were reviewed and were negative
Vital Signs
Temp Pulse Resp BP Pulse Ox
97.3 F 61 16 158/83 97
07/16/24 15:36 07/16/24 15:36 07/16/24 15:36 07/16/24 15:36 07/16/24 15:36
Physical Exam
Physical Exam
Constitutional: No Acute Distress, Comfortable and Non-toxic
Eyes: Sclera Anicteric
Cardiovascular: S1/S2; Negative S3/S4
Pulmonary: Non Labored
Gastrointestinal: Soft, Non Tender and Non Distended
Extremities: Negative Edema, Cyanosis or Erythema
Neurological: Awake and Alert; Negative Meningeal Signs
.
Lab / Diagnostic Study Results
07/16/24 04:57
07/16/24 04:57
Abs Immat Gran (auto) 0.0 10^3/uL (0-0.05) 07/16/24 04:57
Absolute Neuts (auto) 7.7 10^3/uL (1.4-6.5) H 07/16/24 04:57
Absolute Lymphs (auto) 0.6 10^3/uL (1.2-3.4) L 07/16/24 04:57
Absolute Monos (auto) 0.4 10^3/uL (0.1-0.6) 07/16/24 04:57
Absolute Basos (auto) 0.0 10^3/uL (0-0.2) 07/16/24 04:57
Immature Gran % 0.3 % (0-0.5) 07/16/24 04:57
Neutrophils % 88.3 % (42.2-75.2) H 07/16/24 04:57
Lymphocytes % 6.4 % (20.5-51.1) L 07/16/24 04:57
Monocytes % 4.8 % (1.7-9.3) 07/16/24 04:57
Eosinophils % 0.0 % (0-6) 07/16/24 04:57
Basophils % 0.2 % (0-2) 07/16/24 04:57
Microbiology Results
Micro:
07/15/24 00:53 Anaerobic Culture - Preliminary
Abdomen Culture pending. Anaerobic cultures are examined after 3
days incubation. Additional information to follow.
07/15/24 00:53 Wound Culture - Preliminary
Abdomen Gram Stain - Preliminary
Imaging:
07/14/2024 CT abdomen/pelvis with IV contrast: Findings of known acute diverticulitis along the distal descending colon with new pneumoperitoneum throughout the abdomen consistent with perforated diverticulitis. Please see full dictation for
additional detail.
Assessment / Plan
Acute diverticulitis with perforation
Fecal peritonitis
Normal white count with left shift
Hx subarachnoid hemorrhage with COOK 3 PASTRY shunt placement (2018)
Recommendations:
Continue with empiric Zosyn for the present.
Monitor white count and temperature curve.
Await further culture data to guide antimicrobial selection and potential de-escalation.
Patient reports that he is in contact with his Neurosurgeon at [place], and will forward on my name and contact information to them in case they would like to further discuss the case.
Further recommendations as additional data is returned.
[2024-07-16] MEDS: LOVENOX 40 MG SC (17:59)
[2024-07-16 23:00] VITALS: BP 167/89
[2024-07-17 03:00] VITALS: BP 150/80
[2024-07-17] MEDS: TORADOL 10 MG IV ×4 (04:20→21:21)
[2024-07-17] MEDS: ZOSYN 50 IV ×4 (04:20→21:20)
[2024-07-17 05:53] VITALS: BMI 29.9
[2024-07-17 07:51] VITALS: BP 155/84
[2024-07-17] MEDS: NSS (PRESERVATIVE FREE) 10 ML IV (08:31)
[2024-07-17] MEDS: PROTONIX IV 40 MG IV (08:32)
[2024-07-17] MEDS: NORMOSOL-R/PLASMALYTE-A 1000 IV ×2 (08:33→17:10)
--- NOTE | 2024-07-17 08:35 | W.PN.CRS1 ---
Today's Communication / Plan
-
� As below
Assessment/Plan
-
POD 2 Stefany's, take-down splenic flexure
AFVSS, NGT 700 mL
No labs
� Continue n.p.o. with NGT to LIWS until ostomy function
� Continue pain control with Toradol and Dilaudid as needed
� Continue DVT PPx with Lovenox
� Continue OOB, encourage IS
� ASHLEE to bulb suction
� Continue Zosyn; appreciate ID
� Will consult neurosurgery to discuss if DRIVE MAN shunt should be externalized
Subjective Data
Procedure
07/04/2024 - 1) Stefany's resection (resection of descending and proximal sigmoid with colostomy creation) 2) takedown splenic flexure
Subjective Data
Date of Service: July 17, 2024
No overnight events.
Denies N/V, still with NGT
No ostomy function yet
Voiding
Patient is OOB
Objective Data
-
Vital Signs
Temp Pulse Resp BP Pulse Ox
97.0 F 59 16 155/84 95
07/17/24 07:51 07/17/24 07:51 07/17/24 07:51 07/17/24 07:51 07/17/24 07:51
Intake & Output
07/16/24 07/17/24 07/18/24
06:59 06:59 06:59
Intake Total 2930 / 2930 1400 / 1400
Output Total 2970 / 2970 1465 / 1465
Balance -40 / -40 -65 / -65
Intake:
Oral fluids 120 / 120
IV fluids (Total) 2100 / 2100 1000 / 1000
IV piggybacks 650 / 650 100 / 100
Amount instilled into GI Tube ( 180 / 180 180 / 180
Total)
[place] Sump 180 / 180 180 / 180
Output:
Drain Output (Total) 480 / 480 115 / 115
Right Lower Abdomen Burke- 480 / 480 115 / 115
Jerry
Gastrointestinal tube output ( 840 / 840 700 / 700
Total)
[place] Sump 840 / 840 700 / 700
Urine, Zelaya 1650 / 1650 250 / 250
Urine, Voided 400 / 400
Other:
Number of approximated MODERATE 3
amounts of urine
Lab Results
07/16/24 04:57
07/16/24 04:57
Physical Exam
-
General: No Acute Distress and AOx3
HEENT: Grossly Normal
Abdomen: Soft, Distended (Mildly distended (stable from yesterday)), Tender (Appropriately tender near midline incision), No Guarding and No Rebound
Skin: Warm and Dry
Wound: Other (Midline covered with Aquacel, stable strikethrough; ostomy pink with bowel sweat, no flatus or stool in the bag)
--- NOTE | 2024-07-17 09:10 | W.PN.UPDATE ---
Update Note
Progress Note Update
Discussed case with neurosurgeon Dr. Roe ([place]) regarding FLIGHT SERVICE AGENT shunt. There was diffuse peritonitis throughout the abdomen and the tip was visualized in the right peritoneal cavity. Per Dr. Roe 'If he has been starting antibiotics, and is
being treated, would continue with plan for extended course of IV antibiotics. Watch closely for any signs of meningitis. If he becomes symptomatic, then yes , would have to be externalized. Would not prophylactically externalize shunt, if he is not
meningitic. Also would get baseline CT scan of the head.' Will order CT head. Appreciate ID.
--- NOTE | 2024-07-17 10:49 | W.PN.ID1 ---
Date of Service
Date of Service: July 17, 2024
Today's Communication
Continue antibiotics.
Assessment / Plan
Acute diverticulitis with perforation
Fecal peritonitis
Normal white count with left shift
Hx subarachnoid hemorrhage with HORN PLAYER shunt placement (2018)
Recommendations:
Intraoperative cultures now with a gram-negative carmenza isolated.
Continue with empiric Zosyn for the present.
Monitor white count and temperature curve.
Await further culture data to guide antimicrobial selection and potential de-escalation.
Patient reports that he is in contact with his Neurosurgeon at [place], and will forward on my name and contact information to them in case they would like to further discuss the case regarding any further management of the patient's HORN PLAYER shunt.
Further recommendations as additional data is returned.
����������������������������������������������������������
Chief Complaint
-: Other (Perforated diverticulitis)
Subjective / Review of Systems
Review of Systems: No Fever and No Chills
Vital Signs / Physical Exam
Vital Signs
Vital Signs
Temp Pulse Resp BP Pulse Ox
97.0 F 59 16 155/84 95
07/17/24 07:51 07/17/24 07:51 07/17/24 07:51 07/17/24 07:51 07/17/24 07:51
Physical Exam
Constitutional: No Acute Distress, Comfortable and Non-toxic
Head: Other (NG tube in place.)
Eyes: Sclera Anicteric
Cardiovascular: Regular Rate and S1/S2; Negative S3/S4
Pulmonary: Clear and Non Labored
Gastrointestinal: Soft, Tender, Decreased Bowel Sounds, No Rebound and Other (Ostomy in place. ASHLEE in place with serosanguineous fluid.)
Extremities: Negative Cyanosis or Erythema
Neurological: Awake and Alert
Psychological: Calm
Objective Data
Lab Data
Lab Results
07/16/24 04:57
07/16/24 04:57
Estimated Creat Clear 78 ml/min 07/16/24 04:57
Total Bilirubin 2.5 mg/dl (0.2-1.3) H 07/14/24 19:45
AST 24 U/L (17-59) 07/14/24 19:45
ALT 23 U/L (0-50) 07/14/24 19:45
Alkaline Phosphatase 61 U/L (38-126) 07/14/24 19:45
Most recent labs reviewed.
CT Scan: Image Reviewed and Report Reviewed
Micro Results:
07/15/24 00:53 Wound Culture - Preliminary
Abdomen Gram negative bacilli
Gram Stain - Preliminary
07/15/24 00:53 Anaerobic Culture - Preliminary
Abdomen Culture pending. Anaerobic cultures are examined after 3
days incubation. Additional information to follow.
Imaging:
07/14/2024 CT abdomen/pelvis with IV contrast: Findings of known acute diverticulitis along the distal descending colon with new pneumoperitoneum throughout the abdomen consistent with perforated diverticulitis. Please see full dictation for
additional detail.
--- NOTE | 2024-07-17 11:56 | CON.NS ---
Chief Complaint
-
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
History of Present Illness
This is a very pleasant 64-year-old male admitted with a ruptured diverticular disease. He has a history of a right sided ventriculoperitoneal shunt placement due to subarachnoid hemorrhage. This sounds to have been a angio negative subarachnoid
hemorrhage however this is not confirmed. Did not undergo any coiling or clipping. Is unknown as to the cause of his subarachnoid hemorrhage. He had a shunt placed in 2018. This was done at [place]. Currently has no headache. He states he
has never had his shunt adjusted. He has not had any issues since its placement in 2018.
Review of Systems
-
10 point review of systems is completed negative except stated in HPI.
Medication and Allergies
Home Medications
Home Medications
�Medication �Instructions �Recorded
acetaminophen 500 mg tablet 500 mg PO Q6HPRN PRN mild pain 07/14/24
(Tylenol Extra Strength)
amoxicillin 875 mg-potassium 1 tab PO BID #20 tabs 07/14/24
clavulanate 125 mg tablet
ferrous sulfate 325 mg (65 mg 325 mg PO DAILY 07/14/24
iron) tablet
ibuprofen 200 mg tablet (Advil) 400 mg PO Q6HPRN PRN mild pain 07/14/24
omega 2-bai-krg-fish oil 1,000 mg 1 cap PO DAILY 07/14/24
(120 mg-180 mg) capsule (Fish Oil)
Allergies
Allergies
Allergy/AdvReac Type Severity Reaction Status Date / Time
No Known Allergies Allergy Verified 07/14/24 19:33
Physical Exam
-
Exam:
Awake alert and oriented x 3
Cranials 2 through 12 grossly intact
Shunt pumps and refills easily
Sensory exam is normal
Cerebellar exam is normal
CT of the head shows right sided ventriculoperitoneal shunt with right sided lateral ventricle collapse. There is low-density around the catheter at its insertion site. This is chronic and likely related back to placement.
Problems
-
Problem Status Onset Code
Pneumoperitoneum K66.8
Diverticulitis K57.92
Assessment / Plan
-
History of ventriculoperitoneal shunt for hydrocephalus
1. Given his ruptured diverticular disease with feculent peritonitis recommend continued observation for the development of meningitis. There is no indication for externalization of shunt at this time. If he develops any signs or symptoms of
meningitis then externalization will take place
2. Continue antibiotics as per infectious disease
3. Notify neurosurgery of any neurologic changes.
--- NOTE | 2024-07-17 12:05 | CM ---
Chart reviewed. Met with pt
Pt with new ostomy - discussed VN - receptive to VN at discharge
Has no preference
[facility] to [id number] Liaison for HH neds
Plan - anticipate home with VN when medically ready
--- NOTE | 2024-07-17 13:43 | VNURNOTE ---
Home Health Liaison met with patient and spouse at bedside to discuss [facility] nurse/therapy, visits, schedule and homebound status. Both are agreeable and understand that visits at home will be 2-3 x per week to assess and teach medical management,
ostomy teaching and care. Spouse is a RN. [facility] liaison provided [facility] contact information. Patient is aware that [facility] will contact them for start of care in 1-2 days after discharge from . [facility] referral completed in [facility] Port.
[2024-07-17 15:04] VITALS: BP 148/78
--- NOTE | 2024-07-17 15:08 | WOUNDNOTE ---
WOC RN note: t/c Spoke with patient's Lenore and scheduled a 1 pm appointment tomorrow for ostomy appliance change and teaching.
[2024-07-17] MEDS: LOVENOX 40 MG SC (17:05)
[2024-07-17] MEDS: ANESTHETIC LOZENGE 1 LOZENGE PO (22:52)
[2024-07-17 23:17] VITALS: BP 157/86
--- NOTE | 2024-07-18 02:10 | PTCARENOTE ---
Pt. returning from bathroom and stated he had been developing a headache and wanted to make staff aware as neuro was consulted to monitor pt's RETORT FIRER shunt and watch for signs/symptoms of meningitis. yardage caller neurosurgeon, Dr. Roe, made aware via [place]
Text. Pt. educated on other meningitis symptoms and asked him to update staff if he develops anything additional. Pt. confirmed his understanding. Plan of care ongoing.
[2024-07-18] MEDS: ZOSYN 50 IV ×4 (03:44→21:43)
[2024-07-18] MEDS: TORADOL 10 MG IV ×4 (03:45→21:42)
[2024-07-18] MEDS: NORMOSOL-R/PLASMALYTE-A 1000 IV ×2 (03:45→14:30)
[2024-07-18 05:30] VITALS: BMI 29.6
[2024-07-18 06:55] VITALS: BP 160/83
[2024-07-18] MEDS: NSS (PRESERVATIVE FREE) 10 ML IV (07:51)
[2024-07-18] MEDS: PROTONIX IV 40 MG IV (07:51)
[2024-07-18 08:59] LABS: % Basophils 0.5 % (0-2); % Eosinophils 2.8 % (0-6); % Immature Granulocytes 2.3 % (0-0.5); % Lymphocytes 10.9 % (20.5-51.1); % Neutrophils 75.5 % (42.2-75.2); Absolute Basophils 0.1 10^3/uL (0-0.2); Absolute Eosinophils 0.3 10^3/uL (0-0.7); Absolute Immature Granulocytes 0.2 10^3/uL (0-0.05); Absolute Monocytes 0.8 10^3/uL (0.1-0.6); Hematocrit 38.5 % (39.0-52.0); Mean Corp Hgb Conc. 33.8 g/dL (33.0-37.0); Mean Corpuscular Volume 88.9 fL (80.0-94.0); Mean Platelet Volume 9.7 fL (7.4-10.4); Nucleated Red Blood Cells % 0 % (-); Platelet Count 248 10^3/uL (130-400); Red Blood Cell Count 4.33 10^6/uL (4.70-6.10); Red Cell Dist. Width 12.3 % (11.5-14.5); White Blood Cell Count 9.3 10^3/uL (4.8-10.8)
[2024-07-18 09:31] LABS: Blood Urea Nitrogen 20 mg/dl (9-20); Calcium 7.8 mg/dl (8.4-10.2); Carbon Dioxide 24 mmol/L (22-30); Chloride 103 mmol/L (98-107); Estimated Creatinine Clearance 86 ml/min; Glucose 87 mg/dl (70-99); Sodium 137 mmol/L (135-145); eGFR > 60.00
--- NOTE | 2024-07-18 09:40 | W.PN.CRS1 ---
Today's Communication / Plan
-
NG tube clamping trial
Assessment/Plan
-
POD #3 Stefany's, take-down splenic flexure
AFVSS, NGT 180 mL
WBC 9.3, hemoglobin 13.0
�NG tube clamping trial today. Will reevaluate later to decide if patient can have clears.
� Continue pain control with Toradol and Dilaudid as needed
� Continue DVT PPx with Lovenox
� Continue OOB, encourage IS
� ASHLEE to bulb suction. Will remove prior to discharge.
� Continue Zosyn; appreciate ID
�Appreciate neurosurgery consult -no plans for shunt externalization. IV antibiotics per ID. Monitor signs for meningitis.
Subjective Data
Procedure
07/04/2024 - 1) Stefany's resection (resection of descending and proximal sigmoid with colostomy creation) 2) takedown splenic flexure
Subjective Data
Date of Service: July 18, 2024
Patient states he is feeling well. He denies any abdominal pain. He is having flatus. He is hungry. He denies nausea or vomiting.
Objective Data
-
Vital Signs
Temp Pulse Resp BP Pulse Ox
98.1 F 63 16 160/83 97
07/18/24 06:55 07/18/24 06:55 07/18/24 06:55 07/18/24 06:55 07/18/24 06:55
Intake & Output
07/17/24 07/18/24 07/19/24
06:59 06:59 06:59
Intake Total 1400 / 1400 2710 / 2710
Output Total 1465 / 1465 795 / 795
Balance -65 / -65 1914
Intake:
Oral fluids 120 / 120 120 / 120
IV fluids (Total) 1000 / 1000 2000 / 1999
IV piggybacks 100 / 100 200 / 200
Amount instilled into GI Tube ( 180 / 180 390 / 390
Total)
[place] Sump 180 / 180 390 / 390
Output:
Drain Output (Total) 615 / 615
Right Lower Abdomen Burke- 615 / 615
Jerry
Gastrointestinal tube output ( 700 / 700 180 / 180
Total)
[place] Sump 700 / 700 180 / 180
Urine, Zelaya 250 / 250
Urine, Voided 400 / 400
Other:
Number of approximated SMALL 1
amounts of urine
Number of approximated MODERATE 3 1
amounts of urine
Lab Results
07/18/24 08:20
07/18/24 08:20
Physical Exam
-
General: No Acute Distress and AOx3
Abdomen: Soft, Non Distended and Non Tender
Skin: Warm and Dry
Incision: Clear, Dry, Intact
[2024-07-18 09:45] VITALS: BMI 29.6
--- NOTE | 2024-07-18 11:16 | W.PN.ID1 ---
Date of Service
Date of Service: July 18, 2024
Today's Communication
Continue antibiotics.
Assessment / Plan
Acute diverticulitis with perforation
Fecal peritonitis
Normal white count with left shift
Hx subarachnoid hemorrhage with HABITAT MANAGEMENT COORDINATOR shunt placement (2018)
Recommendations:
Intraoperative cultures with a gram-negative carmenza isolated; identification pending.
Continue with empiric Zosyn for the present.
Monitor white count and temperature curve.
Await further culture data to guide antimicrobial selection and potential de-escalation.
Patient reports contact with his Neurosurgeon at [place], and have forwarded on my name and contact information to them in case they would like to further discuss the case regarding any further management of the patient's HABITAT MANAGEMENT COORDINATOR shunt.
Further recommendations as additional data is returned.
����������������������������������������������������������
Chief Complaint
-: Other (Perforated diverticulitis)
Subjective / Review of Systems
Review of Systems: No Fever, No Chills, No Headache, No Stiff Neck and Abdominal Pain (mild)
Vital Signs / Physical Exam
Vital Signs
Vital Signs
Temp Pulse Resp BP Pulse Ox
98.1 F 63 16 160/83 97
07/18/24 06:55 07/18/24 06:55 07/18/24 06:55 07/18/24 06:55 07/18/24 06:55
Physical Exam
Constitutional: No Acute Distress, Comfortable and Non-toxic
Head: Other (NG tube in place.)
Eyes: Sclera Anicteric
Cardiovascular: Regular Rate and S1/S2; Negative S3/S4
Pulmonary: Clear and Non Labored
Gastrointestinal: Soft, Tender, Decreased Bowel Sounds, No Rebound and Other (Ostomy in place. ASHLEE in place with serosanguineous fluid.)
Extremities: Negative Cyanosis or Erythema
Neurological: Awake and Alert
Psychological: Calm
Objective Data
Lab Data
Lab Results
07/18/24 08:20
07/18/24 08:20
Estimated Creat Clear 86 ml/min 07/18/24 08:20
Total Bilirubin 2.5 mg/dl (0.2-1.3) H 07/14/24 19:45
AST 24 U/L (17-59) 07/14/24 19:45
ALT 23 U/L (0-50) 07/14/24 19:45
Alkaline Phosphatase 61 U/L (38-126) 07/14/24 19:45
Most recent labs reviewed.
Micro Results:
07/15/24 00:53 Wound Culture - Preliminary
Abdomen Gram negative bacilli
Gram Stain - Rare GNR's / GPR's
07/15/24 00:53 Anaerobic Culture - Preliminary
Abdomen Culture pending. Anaerobic cultures are examined after 3
days incubation. Additional information to follow.
Imaging:
07/14/2024 CT abdomen/pelvis with IV contrast: Findings of known acute diverticulitis along the distal descending colon with new pneumoperitoneum throughout the abdomen consistent with perforated diverticulitis. Please see full dictation for
additional detail.
Care Review
Plan reviewed with: Physician (CRS)
--- NOTE | 2024-07-18 13:43 | WOUNDNOTE ---
[facility] RN note: Patient's stoma pink and budded about 1 1/2x1 3/4 inches. Peristomal skin with minimal local erythema medially. Midline incision with osbaldo and manuel intact, moderate ss drainage on post op incisional border dressing. Dr. Malagon
approved removing post op midline incisional dressing for ostomy teaching and apply dry gauze dressing. Incisional manuel maintained. Instructed patient how to open and close pouch, changing pouch using [place] wafer # [id number], Dianna seal and
[place] pouch # [id number]. Ostomy supplies and colostomy teaching folder in room. Patient gave this racebook writer permission to order a [place] ostomy secure starter kit. Sacral and heel skin intact. Patient is mobile. Plan is home with VN when discharged.
Next appliance change due Sunday.
--- NOTE | 2024-07-18 13:45 | PTCARENOTE ---
NGT clamped @09:45 per MD order; checked residual at 13:45 (30 mls), per order if <250mls remove NGT; NGT removed at bedside.
--- NOTE | 2024-07-18 14:50 | PN.NS ---
Subjective
-
Patient seen and examined. Family at bedside. Patient reported that he had mild frontal headache in the middle of the night, which she attributes could have been secondary to taking a lozenge for throat discomfort. He reports that when he woke up
this morning, the headache was gone. He has not had any neck stiffness, fevers, or headaches since then. Appetite has been normal.
Physical Exam
-
Exam:
Exam:
Awake alert and oriented x 3
Full range of motion of neck, in flexion and extension with no evidence of meningismus
Cranials 2 through 12 grossly intact
Shunt pumps and refills easily
Sensory exam is normal
Cerebellar exam is normal
Able to stand from a sitting position without difficulty.
CT of the head shows right sided ventriculoperitoneal shunt with right sided lateral ventricle collapse. There is low-density around the catheter at its insertion site. This is chronic and likely related back to placement.
Problems
-
Problem Status Onset Code
Pneumoperitoneum K66.8
Diverticulitis K57.92
Assessment / Plan
-
History of ventriculoperitoneal shunt for hydrocephalus
1. Given his ruptured diverticular disease with feculent peritonitis recommend continued observation for the development of meningitis. There is no indication for externalization of shunt at this time. If he develops any signs or symptoms of
meningitis then externalization will take place
2. Continue antibiotics as per infectious disease
3. Notify neurosurgery of any neurologic changes.
Discussed with infectious disease. Plan will be to continue with antibiotics per infectious disease, with subsequent follow-up with patient's primary neurosurgeon, who is aware of current clinical situation
Today's Communication
-
Discussed with patient, and infectious disease
[2024-07-18 15:20] VITALS: BP 156/75
--- NOTE | 2024-07-18 16:18 | WOUNDNOTE ---
WOC RN note: t/catherine Mccall, spoke with Siobhan and ordered patient a Cal ostomy secure starter kit.
[2024-07-18] MEDS: LOVENOX 40 MG SC (17:27)
[2024-07-18 23:00] VITALS: BP 131/72
[2024-07-19] MEDS: NORMOSOL-R/PLASMALYTE-A 1000 IV ×2 (01:21→11:56)
[2024-07-19] MEDS: TORADOL 10 MG IV ×4 (03:42→21:35)
[2024-07-19] MEDS: ZOSYN 50 IV ×4 (03:42→21:35)
[2024-07-19 06:00] VITALS: BMI 29.3
[2024-07-19 07:00] VITALS: BP 157/87
[2024-07-19] MEDS: NSS (PRESERVATIVE FREE) 10 ML IV (08:03)
[2024-07-19] MEDS: PROTONIX IV 40 MG IV (08:03)
--- NOTE | 2024-07-19 08:57 | W.PN.CRS1 ---
Addendum entered and electronically signed by Lionel Culp MD 07/19/24 09:11:
I saw and examined the patient independently.
The Disbursing Agent's note was reviewed and I agree with the note, assessment and plan except where noted below.
Comment: This is a 64-year-old male status post Stefany's procedure for Hinchy for diverticulitis in the setting of a CHEMICAL SPRAYER shunt. Doing well, expected postoperative course.
Appreciate ID and neurosurgery input.
Stoma teaching
dispo planning, anticipate home tomorrow
Original Note:
Today's Communication / Plan
-
low residue diet
switch dilaudid IV to oxycodone
Assessment/Plan
-
POD #4 Stefany's, take-down splenic flexure
AFVSS
no labs
� Advance diet to low residue
� Continue pain control with Toradol. Switch dilaudid to oxycodone PRN.
� Continue DVT PPx with Lovenox
� Continue OOB, encourage IS
� ASHLEE to bulb suction. Will remove prior to discharge.
� Continue Zosyn; appreciate ID
�Appreciate neurosurgery consult -no plans for shunt externalization. IV antibiotics per ID. Monitor signs for meningitis.
-Possible discharge as soon as tomorrow if continues to do well.
Subjective Data
Procedure
07/04/2024 - 1) Stefany's resection (resection of descending and proximal sigmoid with colostomy creation) 2) takedown splenic flexure
Subjective Data
Date of Service: July 19, 2024
Patient states he is having bowel movements and flatus. He is hungry and tolerating clears. He denies headache, fevers, or chills. His pain is well controlled. He has been out of bed and walking the halls.
Objective Data
-
Vital Signs
Temp Pulse Resp BP Pulse Ox
97.8 F 54 14 157/87 97
07/19/24 07:00 07/19/24 07:00 07/19/24 07:00 07/19/24 07:00 07/19/24 07:00
Intake & Output
07/18/24 07/19/24 07/20/24
06:59 06:59 06:59
Intake Total 2710 / 2710 2640 / 2640
Output Total 795 / 795 710 / 710
Balance 1915 / 1915 193 / 193
Intake:
Oral fluids 120 / 120 240 / 240
IV fluids (Total) 1999 / 1999 2200 / 2199
IV piggybacks 200 / 200 200 / 200
Amount instilled into GI Tube ( 390 / 390
Total)
[place] Sump 390 / 390
Output:
Liquid stool amount 50 / 50
Colostomy 50 / 50
Drain Output (Total) 615 / 615 180 / 180
Right Lower Abdomen Burke- 615 / 615 180 / 180
Jerry
Gastrointestinal tube output ( 180 / 180
Total)
[place] Sump 180 / 180
Urine, Voided 480 / 480
Other:
Number of approximated SMALL 1
amounts of urine
Number of approximated MODERATE 1 2
amounts of urine
Lab Results
07/18/24 08:20
07/18/24 08:20
Physical Exam
-
General: No Acute Distress and AOx3
Abdomen: Soft, Non Distended and Non Tender
Skin: Warm and Dry
Incision: Clear, Dry, Intact
--- NOTE | 2024-07-19 10:11 | W.PN.ID1 ---
Date of Service
Date of Service: July 19, 2024
Today's Communication
Continue antibiotics.
Assessment / Plan
Acute diverticulitis with perforation
Fecal peritonitis
Normal white count with left shift
Hx subarachnoid hemorrhage with DIRECTOR AERONAUTICS COMMISSION shunt placement (2018)
Recommendations:
Intraoperative cultures with Klebsiella pneumonia. (Anaerobic culture pending).
Continue with Zosyn while inpatient.
Monitor white count and temperature curve.
Transition to oral Augmentin at the time of discharge, to continue through 07/26/24
����������������������������������������������������������
Chief Complaint
-: Other (Perforated diverticulitis)
Subjective / Review of Systems
Review of Systems: No Fever, No Chills, No Headache, No Stiff Neck and Abdominal Pain (minimal discomfort)
Vital Signs / Physical Exam
Vital Signs
Vital Signs
Temp Pulse Resp BP Pulse Ox
97.8 F 54 14 157/87 97
07/19/24 07:00 07/19/24 07:00 07/19/24 07:00 07/19/24 07:00 07/19/24 07:00
Physical Exam
Constitutional: No Acute Distress, Comfortable and Non-toxic
Eyes: Sclera Anicteric
Cardiovascular: Regular Rate and S1/S2; Negative S3/S4
Pulmonary: Clear and Non Labored
Gastrointestinal: Soft, Non Tender, Normal Bowel Sounds and Other (Ostomy in place. ASHLEE in place with serosanguineous fluid.)
Extremities: Negative Cyanosis or Erythema
Neurological: Awake and Alert
Psychological: Calm
Objective Data
Lab Data
Lab Results
07/18/24 08:20
07/18/24 08:20
Estimated Creat Clear 86 ml/min 07/18/24 08:20
Total Bilirubin 2.5 mg/dl (0.2-1.3) H 07/14/24 19:45
AST 24 U/L (17-59) 07/14/24 19:45
ALT 23 U/L (0-50) 07/14/24 19:45
Alkaline Phosphatase 61 U/L (38-126) 07/14/24 19:45
Most recent labs reviewed.
Micro Results:
07/15/24 00:53 Anaerobic Culture - Preliminary
Abdomen Culture pending. Anaerobic cultures are examined after 3
days incubation. Additional information to follow.
07/15/24 00:53 Wound Culture - Preliminary
Abdomen Klebsiella pneumoniae
Gram Stain - Preliminary
Wound/abscess/other Cult Preliminary 07/15/2024
Rare Klebsiella pneumoniae
1. Klebsiella pneumoniae
M.I.C. RX
--------- ---
Amoxicillin/Potas. Clavulanate <=8/4 S
Ampicillin >16 R
Ampicillin/Sulbactam >16/8 R
Aztreonam <=4 S
Cefazolin 4 I
Cefepime <=2 S
Ceftazidime <=1 S
Ceftriaxone <=1 S
Ertapenem <=0.5 S
Ciprofloxacin <=0.25 S
Gentamicin <=2 S
Meropenem <=1 S
Piperacillin/Tazobactam <=8 S
Tetracycline <=4 S
Tobramycin <=2 S
Trimethoprim/Sulfamethoxazole <=2/38 S
Imaging:
07/14/2024 CT abdomen/pelvis with IV contrast: Findings of known acute diverticulitis along the distal descending colon with new pneumoperitoneum throughout the abdomen consistent with perforated diverticulitis. Please see full dictation for
additional detail.
Care Review
Plan reviewed with: Physician (Neurosurgery at [place])
--- NOTE | 2024-07-19 13:58 | CM ---
Per Angela, pt is accepted by [facility] at [place]
[2024-07-19 15:38] VITALS: BP 133/72
[2024-07-19] MEDS: LOVENOX 40 MG SC (18:27)
[2024-07-19 23:47] VITALS: BP 149/85
[2024-07-20] MEDS: ZOSYN 50 IV ×2 (03:34→08:36)
[2024-07-20 06:00] VITALS: BMI 29.8
[2024-07-20 07:33] VITALS: BP 143/76
--- NOTE | 2024-07-20 08:05 | W.PN.GS2 ---
Today's Communication / Plan
-
Dispo planning
Assessment / Plan
-
This is a 64-year-old male postoperative day 4 from Stefany's procedure. Doing well, expected postoperative course.
Will DC ASHLEE and DC home today with antibiotics Augmentin till 07/26/2024 per ID recommendations.
Stoma care set up, patient feels comfortable with stoma management.
He will follow-up with Dr. Myers in a week or so for staple removal.
Time Spent
Total Time Spent with Patient (in minutes): 20
Subjective Data
-
Date of Service: July 20, 2024
Interval Events:
No acute events overnight. Slept well. Pain Controlled. Denies Nausea/Vomiting, +bowel function. Tolerating diet.
Objective Data
-
Intake and Output
07/19/24 07/20/24 07/21/24
06:59 06:59 06:59
Intake Total 2640 / 2640 2760 / 2760
Output Total 710 / 710 300 / 300
Balance 1930 / 1930 2460 / 2460
Intake:
Oral fluids 240 / 240 2760 / 2760
IV fluids (Total) 2200 / 2200
IV piggybacks 200 / 200
Output:
Liquid stool amount 50 / 50 100 / 100
Colostomy 50 / 50 100 / 100
Drain Output (Total) 180 / 180 200 / 200
Right Lower Abdomen Burke- 180 / 180 200 / 200
Jerry
Urine, Voided 480 / 480
Other:
Number of approximated MODERATE 2 7
amounts of urine
Vital Signs
Temp Pulse Resp BP Pulse Ox
97.4 F 52 16 143/76 95
07/20/24 07:33 07/20/24 07:33 07/20/24 07:33 07/20/24 07:33 07/20/24 07:33
Lab Results
07/18/24 08:20
07/18/24 08:20
Calcium 7.8 mg/dl (8.4-10.2) L 07/18/24 08:20
Total Bilirubin 2.5 mg/dl (0.2-1.3) H 07/14/24 19:45
AST 24 U/L (17-59) 07/14/24 19:45
ALT 23 U/L (0-50) 07/14/24 19:45
Alkaline Phosphatase 61 U/L (38-126) 07/14/24 19:45
Total Protein 6.6 g/dl (6.3-8.2) 07/14/24 19:45
Albumin 4.2 g/dl (3.5-5.0) 07/14/24 19:45
Physical Exam
-
GENERAL/NEURO: Awake, Alert, no distress
CHEST: Unlabored breathing on RA
ABDOMEN: Soft, Non-Tender, Non-Distended, incisions clean dry open no bleeding. Ostomy is pink patent and productive of stool. ASHLEE is serosanguineous
Patient has a randall catheter: No
Patient has a central line: No
[2024-07-20] MEDS: PROTONIX IV 40 MG IV (08:29)
[2024-07-20] MEDS: NSS (PRESERVATIVE FREE) 10 ML IV (08:29)
--- NOTE | 2024-07-20 09:21 | CM ---
Plan: discharge to home today with VNA services
Patient reported via phone that his was on her way to transport him home
== END 2024-07-20 10:07 | disposition home health service (06) | DRG 346 ==
LOC: 2 SOUTH 04:27
PROVIDERS: Emergency Medicine; Physician Assistant; ADMITTING PHYSICIAN Surgery; EMERGENCY PHYSICIAN Emergency Medicine; FAMILY PHYSICIAN Family Medicine; OTHER PHYSICIAN Internal Medicine Infectious Disease; OTHER PHYSICIAN Neurological Surgery
PROC: 0DSM4ZZ Reposition Descending Colon, Percutaneous Endoscopic Approach (ICD-10-PCS; 2024-07-15)
DX: K57.20 Diverticulitis of large intestine with perforation and abscess without bleeding (principal); Z93.3 Colostomy status; Z98.2 Presence of cerebrospinal fluid drainage device
CPT/HCPCS: 88307; 70450; 74177; 80048; 80053; 81003; 83690; 85025; 87070; 87075; 87076; 87077; 87185; 87186; 87205; 93005; 97116; 97163; 99285; C1776; Q9967

== ENCOUNTER 2025-01-28 06:22 | Day surgery (SDC) | payer BC, SELFPAY | END 2025-01-28 09:16 | disposition home or self-care (01) | LOC: GI 06:22 | PROVIDERS: ATTENDING PHYSICIAN Surgery | DX: Z12.11 Encounter for screening for malignant neoplasm of colon (principal); K57.30 Diverticulosis of large intestine without perforation or abscess without bleeding; D12.4 Benign neoplasm of descending colon; Z86.0100 Personal history of colon polyps, unspecified | CPT/HCPCS: 45385; 88305 ==

== ENCOUNTER 2025-01-29 05:54 | Inpatient (IN) | payer BC, SELFPAY ==
[2025-01-20 08:41] LABS: Hematocrit 42.1 % (39.0-52.0); Hemoglobin 14.0 g/dL (13.0-18.0); Mean Corp Hgb Conc. 33.3 g/dL (33.0-37.0); Mean Corpuscular Volume 87.0 fL (80.0-94.0); Platelet Count 206 10^3/uL (130-400); Red Cell Dist. Width 12.9 % (11.5-14.5)
[2025-01-20 08:50] LABS: APTT 27.3 Sec (23.4-35.0); INR 1.02; PT 13.7 Sec (11.4-14.6)
[2025-01-20 09:00] LABS: Glycohemoglobin (HgbA1c) 6.0 % (4.0-5.6)
[2025-01-20 09:12] LABS: ALT (SGPT) 19 U/L (0-50); AST (SGOT) 21 U/L (17-59); Albumin 4.4 g/dl (3.5-5.0); Alkaline Phosphatase 44 U/L (38-126); Blood Urea Nitrogen 20 mg/dl (9-20); Calcium 9.4 mg/dl (8.4-10.2); Carbon Dioxide 28 mmol/L (22-30); Chloride 105 mmol/L (98-107); Glucose 98 mg/dl (70-99); Potassium 4.7 mmol/L (3.5-5.1); Sodium 138 mmol/L (135-145); Total Protein 6.8 g/dl (6.3-8.2); eGFR > 60.00
[2025-01-20 13:55] VITALS: BMI 30.1
--- NOTE | 2025-01-20 18:05 | PTCARENOTE ---
Abnormal ECG on 01/20/2025, Dr. Pierce notified. No further orders at this time.
[2025-01-29] VITALS (18 sets, daily range): BP systolic 60–145; BP diastolic 58–78; BMI 30.1
[2025-01-29] MEDS: NEURONTIN 600 MG PO (06:35)
[2025-01-29] MEDS: TYLENOL 1000 MG PO (06:35)
[2025-01-29] MEDS: HEPARIN 5000 UNITS SC (06:35)
[2025-01-29] MEDS: NORMOSOL-R/PLASMALYTE-A 1000 IV ×2 (06:36→16:08)
[2025-01-29] MEDS: RELISTOR 12 MG SC (06:51)
--- NOTE | 2025-01-29 13:46 | W.IMMPOSTOP ---
Surgical Immed Post Op Note
-
Primary Surgeon: Ada Myers MD
Assisting Surgeon: Virgen Thomson, [facility]; Wally Vines [id number]
Pre-op Diagnosis: 1) colostomy 2) history of perforated diverticulitis
Post-op Diagnosis: same
Procedure Performed: 1) robotic colostomy takedown with completion sigmoidectomy 2) lysis of adhesions 3) flexible sigmoidoscopy
Anesthesia Type: general plus local
Specimen / Cultures: 1) colostomy 2) portion of (remainder of) sigmoid colon
Estimated Blood Loss: 75 cc
Complications: thermal injury to distal ileum--repaired via Lembert sutures
Operative Findings: pelvic and abdominal adhesions
#19 Jesús in pelvis.
Zelaya, ureteral stents and ureteral ICG by Dr. Knight of urology. R stent removed at end of case.
Will send to med surg.
Patient's , Lenore, updated in waiting area.
[2025-01-29 14:25] LABS: Hematocrit 41.6 % (39.0-52.0); Hemoglobin 14.3 g/dL (13.0-18.0); Mean Corp Hgb Conc. 34.4 g/dL (33.0-37.0); Mean Corpuscular Volume 85.2 fL (80.0-94.0); Nucleated Red Blood Cells % 0 % (-); Platelet Count 199 10^3/uL (130-400); Red Cell Dist. Width 12.6 % (11.5-14.5)
[2025-01-29 14:41] LABS: Blood Urea Nitrogen 8 mg/dl (9-20); Calcium 7.7 mg/dl (8.4-10.2); Carbon Dioxide 23 mmol/L (22-30); Chloride 103 mmol/L (98-107); Estimated Creatinine Clearance 87 ml/min; Glucose 168 mg/dl (70-99); Magnesium 2.1 mg/dl (1.6-2.3); Potassium 4.3 mmol/L (3.5-5.1); Sodium 133 mmol/L (135-145); eGFR > 60.00
[2025-01-29] MEDS: DILAUDID 0.5 MG IV (14:51)
--- NOTE | 2025-01-29 15:40 | PTCARENOTE ---
Addendum entered by Lenora Sykes RN 01/29/25 15:59:
RN CLINICAL RESEARCH shunt on head assessed.
Original Note:
Pt arrived to 2south from PACU in a bed. Pt with R quadrant ASHLEE drain with serosanguineous drainage. Left abdomen primaseal dressing with small sanguineous drainage. 3 lap sites ENGROSSER with glue. Zelaya in place with red/orange output to be removed
POD#2. 96% on 2L. Pt drowsy but arouses to verbal. Admission questions answered. bed locked and in lowest position. Care ongoing.
[2025-01-29] MEDS: TYLENOL 650 MG PO ×2 (16:12→23:05)
[2025-01-29] MEDS: DILAUDID 0.25 MG IV (18:38)
[2025-01-29] MEDS: TYLENOL PO (20:18)
[2025-01-30 03:00] VITALS: BP 139/67
[2025-01-30] MEDS: NORMOSOL-R/PLASMALYTE-A 1000 IV ×2 (03:09→18:03)
[2025-01-30] MEDS: TYLENOL 650 MG PO ×6 (03:09→23:40)
[2025-01-30 06:00] VITALS: BMI 28.7
[2025-01-30 07:06] LABS: Hematocrit 41.8 % (39.0-52.0); Hemoglobin 14.1 g/dL (13.0-18.0); Mean Corp Hgb Conc. 33.7 g/dL (33.0-37.0); Mean Corpuscular Volume 86.5 fL (80.0-94.0); Nucleated Red Blood Cells % 0 % (-); Platelet Count 215 10^3/uL (130-400); Red Cell Dist. Width 13.1 % (11.5-14.5)
[2025-01-30 07:36] LABS: Blood Urea Nitrogen 10 mg/dl (9-20); Calcium 8.9 mg/dl (8.4-10.2); Carbon Dioxide 26 mmol/L (22-30); Chloride 105 mmol/L (98-107); Estimated Creatinine Clearance 69 ml/min; Glucose 101 mg/dl (70-99); Magnesium 2.7 mg/dl (1.6-2.3); Potassium 4.5 mmol/L (3.5-5.1); Sodium 138 mmol/L (135-145); eGFR > 60.00
[2025-01-30 07:50] VITALS: BP 125/77
[2025-01-30] MEDS: RELISTOR 12 MG SC (08:54)
[2025-01-30] MEDS: INVANZ 60 MG IV (08:54)
[2025-01-30] MEDS: PROTONIX 40 MG PO (08:55)
[2025-01-30 10:11] VITALS: BP 128/76; BP 155/78; PULSE 58; O2SAT 99
--- NOTE | 2025-01-30 10:19 | W.PN.CRS1 ---
Today's Communication / Plan
-
DC Zelaya.
Out of bed/PT.
Lovenox.
Continue clears.
Another dose of Invanz.
Assessment/Plan
-
POD 1.
1. Vitals and labs reasonable.
2. Continue clears for now. Await bowel function.
3. Start Lovenox this evening.
4. Stent DC'd at bedside. Zelaya to be DC'd.
5. Out of bed/physical therapy.
6. Ordered another dose of Invanz given his known LINE CREW SUPERVISOR shunt. Await ID input regarding potential need for further antibiotics.
Subjective Data
Procedure
Robotic colostomy takedown on 01/29/2025.
Subjective Data
Date of Service: January 30, 2025
Pain control reasonable. No nausea or vomiting. No flatus or BMs yet.
Objective Data
-
Vital Signs
Temp Pulse Resp BP Pulse Ox
97.8 F 61 18 125/77 100
01/30/25 07:50 01/30/25 07:50 01/30/25 07:50 01/30/25 07:50 01/30/25 07:50
Intake & Output
01/29/25 01/30/25 01/31/25
06:59 06:59 06:59
Intake Total 1760 / 1760
Output Total 3245 / 3245
Balance -1485 / -1485
Intake:
Oral fluids 1560 / 1560
IV fluids (Total) 200 / 200
Normosal 200 / 200
Output:
Drain Output (Total) 410 / 410
Right Abdomen Burke-Jerry 410 / 410
Urine, Zelaya 2835 / 2835
Lab Results
01/30/25 06:34
01/30/25 06:34
Physical Exam
-
General: No Acute Distress
Chest: Clear
Cardiovascular: Regular Rate & Rhythm
Abdomen: Distended (Mild), Tender (Mild incisional) and Other (JPs with serosanguineous output)
Extremities: No Edema and No Calf Tenderness
Skin: Warm
Incision: Clear, Dry, Intact and No Skin Erythema
--- NOTE | 2025-01-30 10:52 | CM ---
Reviewed the chart notes and spoke with the patient at the bedside. Patient resides with spouse in a two story home with two steps to enter. The patient reports only DME is a CPAP. Has had VN in past, but no SNF. The patient confirmed his
pharmacy of choice is [facility]. Patient's diet today is clears. CM continues to be available to patient/family and is monitoring medical plan for needs at discharge.
Plan: Discharge to home when medically stable. No needs anticipated at this time.
[2025-01-30 11:15] VITALS: BP 140/74
--- NOTE | 2025-01-30 11:55 | CON.ID ---
Consultation
-
Date/Time Consultation Requested: 01/29/2025 1359
Date/Time Consultation Performed: 01/30/2025 1155
Requesting Provider: Dr. Myers
Performing Provider: Dr. Foster
Reason for Consultation: Hx OLIVE KNOCKER shunt
Chief Complaint / Past History
History of Present Illness
Hugo Lainez is a 64-year-old man being evaluated at the request of Dr. Myers regarding recent abdominal surgery and history of OLIVE KNOCKER shunt. History is obtained from chart review, along with patient interview, and review of old records contained in
the hospital EMR system.
The patient is known to the Infectious Diseases service, having been seen in July 2024 during which time he was dealing with a perforated viscus and fecal peritonitis. He initially presented to the [facility] emergency room on
07/14/2024 with left lower quadrant discomfort. Workup revealed perforated distal descending colon secondary to diverticulitis, with intra-abdominal air. The patient was taken to the OR for Palacio's resection and colostomy creation.
Intraoperative cultures ultimately revealed a growth of Klebsiella pneumoniae. He was evaluated by Neurosurgery given the presence of a OLIVE KNOCKER shunt, but no signs or symptoms of meningitis developed, and there was no indication for externalization of
the shunt. At discharge, he was transition to oral Augmentin, and continued through 07/26/2024.
The patient was readmitted on 01/29, and underwent robotic colostomy takedown with completion sigmoidectomy. Prior to or he received a dose of ertapenem. Infectious Diseases is now asked to comment upon further antimicrobial management.
Past History
Additional Past Medical History:
Subarachnoid hemorrhage (2018)
Additional Past Surgical History:
OLIVE KNOCKER shunt placement (2018)
Allergy History:
No Known Allergies Allergy (Verified 01/29/25 06:23)
Medications Reviewed: Yes
Current Antibiotics:
Ertapenem x 1 (01/29/2025)
Social History
Tobacco: Non-Smoker
Alcohol: Occasional
Drug: None
Personal:
Living: With Family
Employment: Employed
Review of Systems
Vital Signs
Temp Pulse Resp BP Pulse Ox
97.8 F 61 18 125/77 100
01/30/25 07:50 01/30/25 07:50 01/30/25 07:50 01/30/25 07:50 01/30/25 07:50
Physical Exam
Physical Exam
Constitutional: No Acute Distress, Comfortable and Non-toxic
Eyes: No Conjunctival Hemorrhage and Sclera Anicteric
Oral: No Thrush and No Ulcers
Cardiovascular: Regular Rate and S1/S2; Negative S3/S4
Pulmonary: Clear; Negative Wheezes, Rales or Rhonchi
Gastrointestinal: Soft, Tender (Mild) and Distended
Genito-Urinary: Zelaya and Clear Urine; Negative Turbid Urine
Extremities: Edema (Trace); Negative Cyanosis
Skin: Warm and Dry
Neurological: Awake and Alert
Psychological: Calm
Lab / Diagnostic Study Results
01/30/25 06:34
01/30/25 06:34
Abs Immat Gran (auto) 0.1 10^3/uL (0-0.05) H 01/30/25 06:34
Absolute Neuts (auto) 8.7 10^3/uL (1.4-6.5) H 01/30/25 06:34
Absolute Lymphs (auto) 1.1 10^3/uL (1.2-3.4) L 01/30/25 06:34
Absolute Monos (auto) 1.1 10^3/uL (0.1-0.6) H 01/30/25 06:34
Absolute Basos (auto) 0.0 10^3/uL (0-0.2) 01/30/25 06:34
Immature Gran % 0.5 % (0-0.5) 01/30/25 06:34
Neutrophils % 79.4 % (42.2-75.2) H 01/30/25 06:34
Lymphocytes % 10.1 % (20.5-51.1) L 01/30/25 06:34
Monocytes % 9.8 % (1.7-9.3) H 01/30/25 06:34
Eosinophils % 0.1 % (0-6) 01/30/25 06:34
Basophils % 0.1 % (0-2) 01/30/25 06:34
PT 13.7 Sec (11.4-14.6) 01/20/25 06:46
INR 1.02 01/20/25 06:46
Assessment / Plan
S/p colostomy reversal, sigmoidectomy
Prior history of fecal peritonitis
OLIVE KNOCKER shunt in place
Recommendations:
At present, no indication for prolonged course of antibiotics.
Would complete a total of 3 days of IV antibiotics given recent surgery and coverage of OLIVE KNOCKER shunt.
Patient will follow for the development of any signs or symptoms of meningitis.
[2025-01-30 15:10] VITALS: BP 119/69
[2025-01-30 15:15] VITALS: BMI 28.7
[2025-01-30] MEDS: LOVENOX 40 MG SC (18:04)
[2025-01-30 23:00] VITALS: BP 140/74
[2025-01-30] MEDS: TYLENOL PO (23:12)
[2025-01-31] MEDS: TYLENOL PO ×3 (04:00→23:57)
[2025-01-31] MEDS: TYLENOL 650 MG PO ×4 (05:29→17:09)
[2025-01-31] MEDS: NORMOSOL-R/PLASMALYTE-A 1000 IV (05:29)
[2025-01-31 06:00] VITALS: BMI 28.6
[2025-01-31 07:00] VITALS: BP 143/82
[2025-01-31 07:51] LABS: Hematocrit 42.1 % (39.0-52.0); Hemoglobin 13.9 g/dL (13.0-18.0); Mean Corp Hgb Conc. 33.0 g/dL (33.0-37.0); Mean Corpuscular Volume 87.2 fL (80.0-94.0); Nucleated Red Blood Cells % 0 % (-); Platelet Count 196 10^3/uL (130-400); Red Cell Dist. Width 13.3 % (11.5-14.5)
[2025-01-31 08:24] LABS: Blood Urea Nitrogen 11 mg/dl (9-20); Calcium 8.8 mg/dl (8.4-10.2); Carbon Dioxide 29 mmol/L (22-30); Chloride 105 mmol/L (98-107); Estimated Creatinine Clearance 63 ml/min; Glucose 90 mg/dl (70-99); Magnesium 2.4 mg/dl (1.6-2.3); Potassium 4.6 mmol/L (3.5-5.1); Sodium 137 mmol/L (135-145); eGFR > 60.00
[2025-01-31] MEDS: INVANZ 60 MG IV (09:36)
[2025-01-31] MEDS: RELISTOR 12 MG SC (09:37)
[2025-01-31] MEDS: PROTONIX 40 MG PO (09:38)
--- NOTE | 2025-01-31 12:20 | W.PN.GS2 ---
Today's Communication / Plan
-
-- Advance to fulls with possible LRD this evening
-- Pain control: Tylenol, Tramadol
-- Abx: ID consult, on Invanz for 3 days post-op for RECEPTION SPECIALIST shunt coverage
-- HLIV
Assessment / Plan
-
Patient is a 64 yo M POD 2 s/p robotic colostomy takedown
AVSS
Labs notable for normalized WBC, stable Hb, normal platelets, normal electrolytes and renal function
Recovering well. No postoperative concerns.
-- Advance to fulls with possible LRD this evening
-- Pain control: Tylenol, Tramadol
-- Abx: ID consult, on Invanz for 3 days post-op for RECEPTION SPECIALIST shunt coverage
-- Home meds
-- HLIV
-- DVT: Lovenox
-- GI: PPI
Subjective Data
-
Date of Service: January 31, 2025
No complaints. Pain well-controlled. Tolerating clears. Passing some flatus and blood-tinged stool. No nausea or vomiting. Voiding. Ambulating.
Objective Data
-
Intake and Output
01/30/25 01/31/25 02/01/25
06:59 06:59 06:59
Intake Total 1760 / 1760 3200 / 3200 910 / 910
Output Total 3245 / 3245 1815 / 1855 125 / 125
Balance -1485 / -1485 1385 / 1345 785 / 785
Intake:
Oral fluids 1560 / 1560 2240 / 2240 540 / 540
IV fluids (Total) 200 / 200 960 / 960 320 / 320
Normosal 200 / 200
IV piggybacks 50 / 50
Output:
Drain Output (Total) 410 / 410 465 / 505 125 / 125
Right Abdomen Burke-Jerry 410 / 410 465 / 505 125 / 125
Urine, Randall 2835 / 2835 300 / 300
Urine, Voided 1050 / 1050
Other:
Number of approximated MODERATE 3 1
amounts of urine
Vital Signs
Temp Pulse Resp BP Pulse Ox
97.8 F 57 16 143/82 99
01/31/25 07:00 01/31/25 07:00 01/31/25 07:00 01/31/25 07:00 01/31/25 07:00
Lab Results
01/31/25 06:23
01/31/25 06:23
Calcium 8.8 mg/dl (8.4-10.2) 01/31/25 06:23
Magnesium 2.4 mg/dl (1.6-2.3) H 01/31/25 06:23
Total Bilirubin 0.8 mg/dl (0.2-1.3) 01/20/25 06:46
AST 21 U/L (17-59) 01/20/25 06:46
ALT 19 U/L (0-50) 01/20/25 06:46
Alkaline Phosphatase 44 U/L (38-126) 01/20/25 06:46
Total Protein 6.8 g/dl (6.3-8.2) 01/20/25 06:46
Albumin 4.4 g/dl (3.5-5.0) 01/20/25 06:46
Physical Exam
-
Gen: NAD
Abd: soft, mild distension, mild tenderness, non-peritoneal, incisions c/d/i - no erythema, ecchymosis or drainage, ASHLEE serosang
Patient has a randall catheter: No
Patient has a central line: No
[2025-01-31 15:20] VITALS: BP 155/95
[2025-01-31] MEDS: LOVENOX 40 MG SC (17:09)
[2025-01-31] MEDS: ZOFRAN 4 MG IV (20:08)
--- NOTE | 2025-01-31 20:53 | PTCARENOTE ---
Pt reporting nausea, adm Zofran. Pt reports tolerated low res diet this evening, had 2 blood/brown BM this afternoon. ASHLEE patent serosanguineous today, previous day was se. Pt resting in bed, call coelho in reach
[2025-01-31] MEDS: COMPAZINE 5 MG IV (21:48)
--- NOTE | 2025-01-31 22:15 | PTCARENOTE ---
Large clot observed at tip of ASHLEE drain, able to dislodge, drain had remained patent during this time but large amount of serous fluid saturated drain sponge.
[2025-01-31 23:30] VITALS: BP 146/94
[2025-02-01] MEDS: TYLENOL 650 MG PO ×3 (01:03→17:43)
--- NOTE | 2025-02-01 05:47 | PTCARENOTE ---
Pt nausea resolved with compazine, ASHLEE remains patent but large amount of serous fluid from insertion site throughout shift. Drain dressing changed 2x saturated..
[2025-02-01 06:00] VITALS: BMI 28.5
--- NOTE | 2025-02-01 06:24 | PTCARENOTE ---
80ml serous output over 3 hours with saturated drain sponge dressing @ this time.
[2025-02-01 07:25] VITALS: BP 157/97
[2025-02-01] MEDS: PROTONIX 40 MG PO (08:38)
[2025-02-01] MEDS: RELISTOR 12 MG SC (08:39)
--- NOTE | 2025-02-01 10:27 | W.PN.ID1 ---
Date of Service
Date of Service: February 01, 2025
Today's Communication
Continue antibiotics.
Assessment / Plan
S/p colostomy reversal, sigmoidectomy
Prior history of fecal peritonitis
FINANCIAL SERVICES REPRESENTATIVE shunt in place
Recommendations:
At present, no indication for prolonged course of antibiotics.
Completing a total of 3 days of IV antibiotics given recent surgery and coverage of FINANCIAL SERVICES REPRESENTATIVE shunt.
Patient will thereafter follow for the development of any signs or symptoms of meningitis.
Chief Complaint
-: Other (FINANCIAL SERVICES REPRESENTATIVE shunt. Recent abdominal surgery)
Subjective / Review of Systems
No headache
Review of Systems: No Fever and No Chills
Vital Signs / Physical Exam
Vital Signs
Vital Signs
Temp Pulse Resp BP Pulse Ox
97.8 F 77 16 157/97 95
02/01/25 07:25 02/01/25 07:25 02/01/25 07:25 02/01/25 07:25 02/01/25 07:25
Physical Exam
Constitutional: No Acute Distress, Comfortable and Non-toxic
Eyes: Sclera Anicteric
Pulmonary: Non Labored
Gastrointestinal: Non Distended
Neurological: Awake and Alert
Psychological: Calm
Objective Data
Lab Data
PT 13.7 Sec (11.4-14.6) 01/20/25 06:46
INR 1.02 01/20/25 06:46
APTT 27.3 Sec (23.4-35.0) 01/20/25 06:46
Estimated Creat Clear 63 ml/min 01/31/25 06:23
Total Bilirubin 0.8 mg/dl (0.2-1.3) 01/20/25 06:46
AST 21 U/L (17-59) 01/20/25 06:46
ALT 19 U/L (0-50) 01/20/25 06:46
Alkaline Phosphatase 44 U/L (38-126) 01/20/25 06:46
Most recent labs reviewed.
--- NOTE | 2025-02-01 10:48 | W.PN.GS2 ---
Addendum entered and electronically signed by Michael Neely MD 02/01/25 11:01:
Patient seen and examined. Agree with assessment plan as documented below.
Issues with nausea overnight. No episodes of vomiting. Continues to pass flatus and small loose slightly bloody stools. No fevers.
Gen: NAD
Abd: soft, mild tenderness, distended, tympanitic, non-peritoneal, incisions c/d/i - no erythema, ecchymosis or drainage, ASHLEE serosang, old ostomy site with shadowing
Patient is a 64 yo M POD 3 s/p robotic colostomy takedown
AVSS
Labs for today pending
Nausea with dietary advancements yesterday with increased distention. Continues to pass flatus.
-- Clear liquids, instructed to go slow may need NPO/NGT
-- Pain control: Tylenol, Tramadol
-- Abx: Appreciate ID. s/p Invanz for 3 doses for LINE PREP COOK shunt coverage
-- Home meds
-- HLIV
-- DVT: Lovenox
-- GI: PPI
Original Note:
Today's Communication / Plan
-
clear liquids
Assessment / Plan
-
Patient is a 64 yo M POD 3 s/p robotic colostomy takedown
AVSS
Labs for today pending
Nausea with dietary advancements yesterday with increased distention. Continues to pass flatus.
-- Clear liquids
-- Pain control: Tylenol, Tramadol
-- Abx: Appreciate ID. s/p Invanz for 3 doses for LINE PREP COOK shunt coverage
-- Home meds
-- HLIV
-- DVT: Lovenox
-- GI: PPI
Subjective Data
-
Date of Service: February 01, 2025
Pt seen and examined at bedside with Dr. Neely. Nausea last night after trying solid dinner, a little nausea this am as well which has now resolved. No vomiting. Still passing flatus. Passing occasional bright red drops of blood rectally.
Ambulating in the hallway.
Objective Data
-
Intake and Output
01/31/25 02/01/25 02/02/25
06:59 06:59 06:59
Intake Total 3200 / 3200 1630 / 1630
Output Total 1815 / 1855 525 / 525 130 / 130
Balance 1385 / 1345 1105 / 1105 -130 / -130
Intake:
Oral fluids 2240 / 2240 1260 / 1260
IV fluids (Total) 960 / 960 320 / 320
IV piggybacks 50 / 50
Output:
Drain Output (Total) 465 / 505 525 / 525 130 / 130
Right Abdomen Burke-Jerry 465 / 505 525 / 525 130 / 130
Urine, Randall 300 / 300
Urine, Voided 1050 / 1050
Other:
Number of approximated MODERATE 3 3
amounts of urine
Number of unmeasured liquid
stools
Rectum 2
Vital Signs
Temp Pulse Resp BP Pulse Ox
97.8 F 77 16 157/97 95
02/01/25 07:25 02/01/25 07:25 02/01/25 07:25 02/01/25 07:25 02/01/25 07:25
Calcium 8.8 mg/dl (8.4-10.2) 01/31/25 06:23
Magnesium 2.4 mg/dl (1.6-2.3) H 01/31/25 06:23
Total Bilirubin 0.8 mg/dl (0.2-1.3) 01/20/25 06:46
AST 21 U/L (17-59) 01/20/25 06:46
ALT 19 U/L (0-50) 01/20/25 06:46
Alkaline Phosphatase 44 U/L (38-126) 01/20/25 06:46
Total Protein 6.8 g/dl (6.3-8.2) 01/20/25 06:46
Albumin 4.4 g/dl (3.5-5.0) 01/20/25 06:46
Physical Exam
-
Gen: NAD
Abd: soft, moderate distension, mild tenderness, non-peritoneal, incisions c/d/i - no erythema, ecchymosis or drainage, ASHLEE serosang
Patient has a randall catheter: No
Patient has a central line: No
[2025-02-01 11:14] LABS: Hematocrit 48.6 % (39.0-52.0); Hemoglobin 16.2 g/dL (13.0-18.0); Mean Corp Hgb Conc. 33.3 g/dL (33.0-37.0); Mean Corpuscular Volume 85.9 fL (80.0-94.0); Platelet Count 270 10^3/uL (130-400); Red Cell Dist. Width 13.0 % (11.5-14.5)
[2025-02-01 11:21] LABS: Blood Urea Nitrogen 14 mg/dl (9-20); Calcium 9.8 mg/dl (8.4-10.2); Carbon Dioxide 30 mmol/L (22-30); Chloride 99 mmol/L (98-107); Estimated Creatinine Clearance 58 ml/min; Glucose 144 mg/dl (70-99); Potassium 4.5 mmol/L (3.5-5.1); Sodium 137 mmol/L (135-145); eGFR > 60.00
[2025-02-01] MEDS: TYLENOL PO ×2 (12:43→20:20)
[2025-02-01] MEDS: ULTRAM 50 MG PO (12:44)
[2025-02-01 15:05] VITALS: BP 160/94
[2025-02-01] MEDS: LOVENOX 40 MG SC (17:43)
[2025-02-01] MEDS: TUMS CHEWABLE TABLET 400 MG PO (21:29)
[2025-02-01 23:00] VITALS: BP 144/92
[2025-02-02] MEDS: TYLENOL PO ×6 (01:00→19:44)
[2025-02-02] MEDS: TUMS CHEWABLE TABLET 400 MG PO (04:34)
[2025-02-02] MEDS: ZOFRAN 4 MG IV (05:49)
[2025-02-02 06:00] VITALS: BMI 28.4
[2025-02-02 07:00] VITALS: BP 147/89
[2025-02-02 07:28] LABS: Hematocrit 47.9 % (39.0-52.0); Hemoglobin 16.0 g/dL (13.0-18.0); Mean Corp Hgb Conc. 33.4 g/dL (33.0-37.0); Mean Corpuscular Volume 85.1 fL (80.0-94.0); Platelet Count 276 10^3/uL (130-400); Red Cell Dist. Width 12.7 % (11.5-14.5)
[2025-02-02] MEDS: COMPAZINE 5 MG IV (07:33)
--- NOTE | 2025-02-02 07:45 | PTCARENOTE ---
pt is nauseous with no vomiting this AM. started in early AM hrs. Tums and Zofan with no relief. removed all drinks. gave Compazine. Abd is still distended, not firm, decreased BS L>R, mild discomfort. will await Dr. Menard to petra.
[2025-02-02 07:56] LABS: Blood Urea Nitrogen 11 mg/dl (9-20); Calcium 9.5 mg/dl (8.4-10.2); Carbon Dioxide 31 mmol/L (22-30); Chloride 97 mmol/L (98-107); Estimated Creatinine Clearance 63 ml/min; Glucose 127 mg/dl (70-99); Potassium 4.7 mmol/L (3.5-5.1); Sodium 134 mmol/L (135-145); eGFR > 60.00
[2025-02-02] MEDS: NSS 1000 IV (14:05)
[2025-02-02] MEDS: PROTONIX PO (14:05)
[2025-02-02] MEDS: PEPCID 20 MG IV (15:09)
[2025-02-02 15:15] VITALS: BP 143/95
--- NOTE | 2025-02-02 16:44 | W.PN.CRS1 ---
Today's Communication / Plan
-
As below
Assessment/Plan
-
64 yo M with PMH of CUHLA and hydrocephalus s/p PRIMING MIXTURE CARRIER shunt, history of perforated diverticulitis requiring Stefany procedure, presents for elective surgery
POD 4 s/p robotic colostomy takedown, complicated by delayed return of bowel function
AFVSS
WBC 7.4 from 9.3, Hb 16.0, CR 1.1
--Will de-escalate to n.p.o. with IVF and obtain abdominal x-rays
-- Continue pain control with Tylenol, tramadol and Dilaudid as needed
-- Appreciate ID, s/p 3 days of IV antibiotics for prophylaxis in setting of PRIMING MIXTURE CARRIER shunt, no additional needed
--DVT PPx with Lovenox
--Continue ASHLEE to bulb suction
� Continue PPI, will add Pepcid as needed
Subjective Data
Procedure
Robotic colostomy takedown on 01/29/2025.
Subjective Data
Date of Service: February 02, 2025
Tried clear liquids yesterday, but had persistent acid reflux and mild nausea overnight. Denies any vomiting. Had passed flatus yesterday, but none today. Had small volume liquid stool today. Voiding.
Objective Data
-
Vital Signs
Temp Pulse Resp BP Pulse Ox
98.5 F 85 18 143/95 98
02/02/25 15:15 02/02/25 15:15 02/02/25 15:15 02/02/25 15:15 02/02/25 15:15
Intake & Output
02/01/25 02/02/25 02/03/25
06:59 06:59 06:59
Intake Total 1630 / 1630 1080 / 1080 480 / 480
Output Total 525 / 525 400 / 400 110 / 110
Balance 1105 / 1105 680 / 680 370 / 370
Intake:
Oral fluids 1260 / 1260 1080 / 1080 480 / 480
IV fluids (Total) 320 / 320
IV piggybacks 50 / 50
Output:
Drain Output (Total) 525 / 525 400 / 400 110 / 110
Right Abdomen Burke-Jerry 525 / 525 400 / 400 110 / 110
Other:
Number of approximated MODERATE 3 1
amounts of urine
Number of unmeasured liquid
stools
Rectum 2
Lab Results
02/02/25 06:55
02/02/25 06:55
Physical Exam
-
General: No Acute Distress and AOx3
HEENT: Grossly Normal
Abdomen: Soft, Distended (Significantly distended with tympany), Tender (Mildly tender near incisions, no rebound or guarding) and Other (ASHLEE-320 mL serous)
Skin: Warm and Dry
Wound: No Signs of Infection, No Skin Erythema and Other (Incisions well-approximated without erythema or drainage)
[2025-02-02] MEDS: DILAUDID 0.25 MG IV ×2 (17:48→21:50)
[2025-02-02] MEDS: LOVENOX 40 MG SC (17:48)
[2025-02-02 23:00] VITALS: BP 135/81
[2025-02-03] MEDS: NSS 1000 IV ×3 (00:42→20:30)
[2025-02-03] MEDS: TYLENOL PO ×2 (00:54→03:29)
[2025-02-03] MEDS: PEPCID 20 MG IV (03:29)
[2025-02-03 06:00] VITALS: BMI 28.3
[2025-02-03 07:35] VITALS: BP 143/77
[2025-02-03] MEDS: PROTONIX 40 MG PO (08:55)
[2025-02-03] MEDS: TYLENOL 650 MG PO ×4 (08:55→20:32)
--- NOTE | 2025-02-03 11:09 | CM ---
Reviewed the chart notes and spoke with the patient at the bedside. Clear liquid diet today. CM continues to be available to patient/family and is monitoring medical plan for needs at discharge.
Plan: Discharge to home when medically stable. No needs anticipated at this time.
--- NOTE | 2025-02-03 12:19 | W.PN.CRS1 ---
Today's Communication / Plan
-
clears
Assessment/Plan
-
64 yo M with PMH of CHULA and hydrocephalus s/p PAPER REWINDER OPERATOR shunt, history of perforated diverticulitis requiring Stefany procedure, presents for elective surgery
POD 5 s/p robotic colostomy takedown, complicated by delayed return of bowel function
AFVSS
no labs
--Will restart clears. Possible fulls for dinner if tolerates. Advised patient to go slow.
-- Continue pain control with Tylenol, tramadol and Dilaudid as needed
-- Appreciate ID, s/p 3 days of IV antibiotics for prophylaxis in setting of PAPER REWINDER OPERATOR shunt, no additional needed
--DVT PPx with Lovenox
--Continue ASHLEE to bulb suction
� Continue PPI, will add Pepcid as needed
Subjective Data
Procedure
Robotic colostomy takedown on 01/29/2025.
Subjective Data
Date of Service: February 03, 2025
Patient states he feels very hungry. He has gas and some small bowel movements. Denies nausea or vomiting. Pain is controlled.
Objective Data
-
Vital Signs
Temp Pulse Resp BP Pulse Ox
97.6 F 58 17 143/77 99
02/03/25 07:35 02/03/25 07:35 02/03/25 07:35 02/03/25 07:35 02/03/25 07:35
Intake & Output
02/02/25 02/03/25 02/04/25
06:59 06:59 06:59
Intake Total 1080 / 1080 2129 / 2129
Output Total 400 / 400 320 / 320
Balance 680 / 680 181 / 181
Intake:
Oral fluids 1080 / 1080 480 / 480
IV fluids (Total) 1650 / 1650
Output:
Drain Output (Total) 400 / 400 320 / 320
Right Abdomen Burke-Jerry 400 / 400 320 / 320
Other:
Number of approximated MODERATE 1
amounts of urine
Number of approximated LARGE 1
amounts of urine
Number of unmeasured liquid
stools
Rectum 2
Lab Results
02/02/25 06:55
02/02/25 06:55
Physical Exam
-
General: No Acute Distress and AOx3
Abdomen: Soft, Non Distended and Tender (mild)
Skin: Warm and Dry
Incision: Clear, Dry, Intact
[2025-02-03 15:18] VITALS: BP 151/85
[2025-02-03] MEDS: LOVENOX 40 MG SC (17:39)
[2025-02-03 23:18] VITALS: BP 152/79
[2025-02-04] MEDS: TYLENOL PO ×2 (01:00→05:00)
[2025-02-04 06:23] VITALS: BMI 28.7
[2025-02-04 07:45] VITALS: BP 152/78
[2025-02-04] MEDS: PROTONIX 40 MG PO (09:19)
[2025-02-04] MEDS: NSS IV (09:19)
[2025-02-04] MEDS: TYLENOL 650 MG PO ×2 (09:19→11:46)
--- NOTE | 2025-02-04 09:23 | CM ---
Reviewed the chart notes. Patient's diet advanced to low residue. CM continues to be available to patient/family and is monitoring medical plan for needs at discharge.
Plan: Discharge to home when medically stable. No needs anticipated at this time.
--- NOTE | 2025-02-04 10:37 | W.PN.ID1 ---
Date of Service
Date of Service: February 04, 2025
Today's Communication
Sign off
Assessment / Plan
S/p colostomy reversal, sigmoidectomy
Prior history of fecal peritonitis
SENIOR ENGINEERING TECHNICIAN shunt in place
Recommendations:
At present, no indication for prolonged course of antibiotics.
Completed a course of IV ertapenem given recent surgery and coverage of SENIOR ENGINEERING TECHNICIAN shunt.
Patient will thereafter follow for the development of any signs or symptoms of meningitis.
Nothing further to add from a Infectious Diseases standpoint.
Will see again at your request.
Chief Complaint
-: Other (SENIOR ENGINEERING TECHNICIAN shunt. Recent abdominal surgery)
Subjective / Review of Systems
Patient seen and examined. Overall feels well. Denies headache.
Review of Systems: No Fever, No Chills and No Stiff Neck
Vital Signs / Physical Exam
Vital Signs
Vital Signs
Temp Pulse Resp BP Pulse Ox
98.2 F 53 18 152/78 100
02/04/25 07:45 02/04/25 07:45 02/04/25 07:45 02/04/25 07:45 02/04/25 07:45
Physical Exam
Constitutional: No Acute Distress, Comfortable and Non-toxic
Pulmonary: Non Labored
Gastrointestinal: Non Distended
Neurological: Awake and Alert; Negative Meningeal Signs
Psychological: Calm
Objective Data
Lab Data
Lab Results
02/02/25 06:55
02/02/25 06:55
PT 13.7 Sec (11.4-14.6) 01/20/25 06:46
INR 1.02 01/20/25 06:46
APTT 27.3 Sec (23.4-35.0) 01/20/25 06:46
Estimated Creat Clear 63 ml/min 02/02/25 06:55
Total Bilirubin 0.8 mg/dl (0.2-1.3) 01/20/25 06:46
AST 21 U/L (17-59) 01/20/25 06:46
ALT 19 U/L (0-50) 01/20/25 06:46
Alkaline Phosphatase 44 U/L (38-126) 01/20/25 06:46
Most recent labs reviewed.
--- NOTE | 2025-02-04 13:11 | W.PN.CRS1 ---
Today's Communication / Plan
-
Low residue
Possible DC later today
Assessment/Plan
-
64 yo M with PMH of CHULA and hydrocephalus s/p SUPERVISOR TICKET SALES shunt, history of perforated diverticulitis requiring Stefany procedure, presents for elective surgery
POD 6 s/p robotic colostomy takedown, complicated by delayed return of bowel function
AFVSS
no labs
--Low residue diet today.
-- Continue pain control with Tylenol, tramadol and Dilaudid as needed
-- Appreciate ID, s/p 3 days of IV antibiotics for prophylaxis in setting of SUPERVISOR TICKET SALES shunt, no additional needed
--DVT PPx with Lovenox
--Cash drain discontinued at bedside
--Okay for d/c later today if tolerating low residue. Discussed with Dr. Myers who is in agreement. All discharge instructions discussed with patient including medications, activity levels, and follow-up. All questions addressed. Will check in
later today to ensure he has been tolerating a diet
Subjective Data
Procedure
Robotic colostomy takedown on 01/29/2025.
Subjective Data
Date of Service: February 04, 2025
Patient states he feels well. He has bowel function. Denies nausea or vomiting. He has been walking the halls almost consistently. His pain is controlled. Overall he has no complaints and is looking forward to going home.
Objective Data
-
Vital Signs
Temp Pulse Resp BP Pulse Ox
98.2 F 53 18 152/78 100
02/04/25 07:45 02/04/25 07:45 02/04/25 07:45 02/04/25 07:45 02/04/25 11:31
Intake & Output
02/03/25 02/04/25 02/05/25
06:59 06:59 06:59
Intake Total 2130 / 2130 3060 / 3060
Output Total 320 / 320 380 / 380 50 / 50
Balance 1810 / 1810 2680 / 2680 -50 / -50
Intake:
Oral fluids 480 / 480 660 / 660
IV fluids (Total) 1650 / 1650 2400 / 2400
Output:
Drain Output (Total) 320 / 320 380 / 380 50 / 50
Right Abdomen Burke-Jerry 320 / 320 380 / 380 50 / 50
Other:
Number of approximated MODERATE 1 3
amounts of urine
Number of approximated LARGE 1
amounts of urine
How many times incontinent 4
SATURATED amount urine
Lab Results
02/02/25 06:55
02/02/25 06:55
Physical Exam
-
General: No Acute Distress and AOx3
Abdomen: Soft, Non Distended, Non Tender and Other (CASH drain serous)
Skin: Warm and Dry
Incision: Clear, Dry, Intact
[2025-02-04 14:15] VITALS: BP 149/75
--- NOTE | 2025-02-27 14:31 | W.DCSUMMARY ---
Documented by User: Rachel Kauffman PA-C 03/27/25 15:04
Discharge Summary
Discharge Data
Date of Admission: 01/29/25
Date of Discharge: 02/04/25
-
Pending Results: Yes
Additional Pending Results:
pathology
Hospital Course
64yo male presents to a robotic colostomy takedown with completion sigmoidectomy, lysis of adhesions, and flexible sigmoidoscopy secondary to a colostomy with history of perforated diverticulitis. He was sent back to medical surgerical floor with a
emelia drain in the pelvis, randall, ureteral stents, and started on clears. He was also kept on Invanz due to a history of a LABOR AND DELIVERY NURSE shunt. ID was consulted who recommended a total of three days. The following day, the patient was out of bed. Lovenox was
started for DVT prophylaxis. His randall was discontinued. The ureteral stent was removed. On POD#2, the patient was advanced to fulls. On POD#3, he was nausous and had increased distention. His diet was backed down to a clear liquid diet. On POD#4,
she no longer was passing flatus. An abdominal xray was ordered which showed 'Mild small bowel dilatation with air-fluid levels. This is concerning for developing obstruction. Small bowel ileus cannot be excluded.' He was kept NPO. The following
day, he started to have gas and bowel movements and was hungry. His diet was advanced to clears and fulls later that day. On POD#6, he was started on a low residue diet. His emelia drain was removed at bedside. After the patient tolerated a low
residue diet, it was determined the patient could be discharged home. All discharge instructions discussed with patient including medications, activity levels, and follow-up. All questions addressed.
Discharge Plan
-
Patient Disposition: Home (Routine Discharge)
Discharge Diagnosis/Procedures: 1) robotic colostomy takedown with completion sigmoidectomy 2) lysis of adhesions 3) flexible sigmoidoscopy
Diet: Low Residue
Activity: No strenuous activity
Additional Activity: No lifting over 10lbs (gallon of milk)
Driving Restrictions: No driving for 1 week
Bathing Restrictions: OK to Shower
Wound Care: Cover colostomy wound with gauze and paper tape. Change daily and as needed. Okay to remove to shower. The former drain site will close within 5-7 days. Okay to shower open to air. Cover daily and as needed to protect clothing until it
seals.
Instructions: Low-fiber diet
Referrals:
León Myers MD [Active, ColoRectal] - in two weeks
Derian Peterson MD [Family Provider, Family Practice]
Additional Discharge Medication Instructions: Tylenol or Ibuprofen as needed for pain. Maximum dose of Tylenol is 4,000mg in 24 hours. Maximum dose of Ibuprofen is 3,200mg in 24 hours.
Prescriptions:
Continued
De3 Dry Eye Whittaker Benefits 800 mg-186.67 mg-8.33 mcg Capsule
1 - 3 cap PO DAILY
Discontinued
Mometasone Furoate
1 unit irrigation PRN PRN (Reason: nasal irrigation)
neomycin 500 mg Tablet
1 g PO DIRECTED
Sutab 1.479-0.188- 0.225 gram Tablet
0 tab PO PER PKG DIR
Fleet Saline Enema
1 enema IA DIRECTED
metronidazole 500 mg Tablet
500 mg PO DIRECTED
Discharge Orders:
Discharge Patient (As Directed); Ordered 02/04/25
Ordered By: Rachel Kauffman
Discharge Date and Time
Discharge Date/Time: 02/04/25 14:24
Print Language: THAI

Documented by User: Sukumar Menard MD 03/24/25 19:58
Discharge Summary
Discharge Data
Date of Admission: 01/29/25
Date of Discharge: 02/04/25
Discharge Plan
-
Patient Disposition: Home (Routine Discharge)
Discharge Diagnosis/Procedures: 1) robotic colostomy takedown with completion sigmoidectomy 2) lysis of adhesions 3) flexible sigmoidoscopy
Diet: Low Residue
Activity: No strenuous activity
Additional Activity: No lifting over 10lbs (gallon of milk)
Driving Restrictions: No driving for 1 week
Bathing Restrictions: OK to Shower
Wound Care: Cover colostomy wound with gauze and paper tape. Change daily and as needed. Okay to remove to shower. The former drain site will close within 5-7 days. Okay to shower open to air. Cover daily and as needed to protect clothing until it
seals.
Instructions: Low-fiber diet
Referrals:
León Myesr MD [Active, ColoRectal] - in two weeks
Derian Peterson MD [Family Provider, Family Practice]
Additional Discharge Medication Instructions: Tylenol or Ibuprofen as needed for pain. Maximum dose of Tylenol is 4,000mg in 24 hours. Maximum dose of Ibuprofen is 3,200mg in 24 hours.
Prescriptions:
Continued
De3 Dry Eye Whittaker Benefits 800 mg-186.67 mg-8.33 mcg Capsule
1 - 3 cap PO DAILY
Discontinued
Mometasone Furoate
1 unit irrigation PRN PRN (Reason: nasal irrigation)
neomycin 500 mg Tablet
1 g PO DIRECTED
Sutab 1.479-0.188- 0.225 gram Tablet
0 tab PO PER PKG DIR
Fleet Saline Enema
1 enema IA DIRECTED
metronidazole 500 mg Tablet
500 mg PO DIRECTED
Discharge Orders:
Discharge Patient (As Directed); Ordered 02/04/25
Ordered By: Rachel Kauffman
Discharge Date and Time
Discharge Date/Time: 02/04/25 14:24
Print Language: THAI
== END 2025-02-04 14:24 | disposition home or self-care (01) | DRG 330 ==
LOC: 2 SOUTH 05:54
PROVIDERS: Registered Nurse; ADMITTING PHYSICIAN Surgery; CONSULT PHYSICIAN Internal Medicine Infectious Disease; FAMILY PHYSICIAN Family Medicine
PROC: 0DQE0ZZ Repair Large Intestine, Open Approach (ICD-10-PCS; 2025-01-29)
PROC: 0DNU4ZZ Release Omentum, Percutaneous Endoscopic Approach (ICD-10-PCS; 2025-01-29)
DX: Z43.3 Encounter for attention to colostomy (principal); K56.7 Ileus, unspecified; K66.0 Peritoneal adhesions (postprocedural) (postinfection); Z98.2 Presence of cerebrospinal fluid drainage device
CPT/HCPCS: 36415; 74019; 80048; 80053; 83036; 83735; 85025; 85027; 85610; 85730; 86850; 86900; 86901; 88304; 88307; 93005; 97162; A4300; J1335

== ENCOUNTER 2025-04-08 04:10 | Emergency (ER) | payer BC, SELFPAY ==
[2025-04-08] VITALS (7 sets, daily range): BP systolic 130–166; BP diastolic 81–87
[2025-04-08 05:14] LABS: Hematocrit 41.1 % (39.0-52.0); Hemoglobin 14.0 g/dL (13.0-18.0); Mean Corp Hgb Conc. 34.1 g/dL (33.0-37.0); Mean Corpuscular Volume 86.0 fL (80.0-94.0); Nucleated Red Blood Cells % 0 % (-); Platelet Count 206 10^3/uL (130-400); Red Cell Dist. Width 12.9 % (11.5-14.5)
[2025-04-08 05:25] LABS: ALT (SGPT) 23 U/L (0-50); AST (SGOT) 19 U/L (17-59); Albumin 4.5 g/dl (3.5-5.0); Alkaline Phosphatase 50 U/L (38-126); Blood Urea Nitrogen 20 mg/dl (9-20); Calcium 9.2 mg/dl (8.4-10.2); Carbon Dioxide 24 mmol/L (22-30); Chloride 106 mmol/L (98-107); Glucose 100 mg/dl (70-99); Lipase 134 U/L (23-300); Potassium 4.4 mmol/L (3.5-5.1); Sodium 139 mmol/L (135-145); Total Protein 7.0 g/dl (6.3-8.2); eGFR > 60.00
--- NOTE | 2025-04-08 06:13 | ED.GENMED ---
History of Present Illness
<Sukumar Graves DO - Last Filed: 04/13/25 00:59>
General
Chief Complaint: Abdominal Pain
Source: patient
Exam Limitations: none
Time Seen by Provider: 04/08/25 04:22
Nursing documentation reviewed up to this point in time: agreed with
History of Present Illness
History of Present Illness:
64-year-old male with a history of diverticulitis presents with left lower quadrant abdominal pain. Denies fever, chills, nausea or vomiting. Reports no chest pain or shortness of breath.
Past History
<DO Ac Sherman Last Filed: 04/13/25 00:59>
Past History
ED Past Medical History: None
ED Past Surgical History: Other (Sinus surgery)
Social History
Tobacco: Non-smoker
Alcohol: Occasional
Drug: None
Personal:
Living: with family
Employment: Employed
Family History
Family History: Other
Phy Exam
<DO Ac Sherman Last Filed: 04/13/25 00:59>
Physical Exam
Physical Exam:
Physical Exam
Vital signs and allergy list reviewed and agreed with.
GENERAL: Alert , in minimal to moderate apparent distress
EYE: pupils equal, EOMI, anicteric
NECK: Supple, no significant adenopathy. No masses. Trachea midline
ENT: Oropharynx is clear, mmm.
CARDIAC: Regular rate and rhythm . No M/R/G
LUNGS: Clear breath sounds bilaterally, no acute respiratory distress, no wheezes/rales/rhonchi
ABDOMEN: Soft, diffuse central lower and left lower quadrant tenderness to palpation. No CVA tenderness bilaterally. Normal bowel sounds x 4 quadrants. Negative Lainez sign. Negative McBurney's point tenderness.
NEUROLOGICAL: Alert and oriented, no focal neuro deficits
SKIN: Warm and dry, skin intact.
MUSCULOSKELETAL: No edema, well perfused. Moves all 4 extremities
PSYCH: Normal and appropriate interaction.
Course
<Sukumar Graves, DO - Last Filed: 04/13/25 00:59>
Orders/Labs/Results
Orders:
Orders
04/08/25 04:20
IV Insert/Care/Rem.- Treatment PRN
04/08/25 04:23
CT Abd/pelvis W Iv Cont Urgent
Comment:
Reason For Exam: lower abd pain
04/08/25 04:52
Complete Blood Count/With Diff Urgent
Comprehensive Metabolic Panel Urgent
Lactic Acid Urgent
Lipase Urgent
04/08/25 06:39
Urinalysis Reflex To Culture Urgent
Date Specimen was Collected: 04/08/25
Time Specimen was Collected: 04:20
Abnormal Lab Results
04/08/25
04:52
Absolute Neuts (auto) 6.7 H 10^3/uL
(1.4-6.5)
Absolute Monos (auto) 0.7 H 10^3/uL
(0.1-0.6)
Lymphocytes % 17.6 L %
(20.5-51.1)
Glucose 100 H mg/dl
(70-99)
04/08/25 04:52
04/08/25 04:52
Vital Signs
Initial and Last Documented VS:
Initial Vital Signs
Temp Pulse Resp BP Pulse Ox
97.7 F 51 20 166/86 100
04/08/25 04:14 04/08/25 04:14 04/08/25 04:14 04/08/25 04:14 04/08/25 04:14
Last Documented Vital Signs
Temp Pulse Resp BP Pulse Ox
97.7 F 52 16 138/87 100
04/08/25 04:14 04/08/25 07:30 04/08/25 08:00 04/08/25 08:00 04/08/25 08:00
<Sean Guallpa PA-C - Last Filed: 04/10/25 08:15>
Orders/Labs/Results
Orders:
Orders
04/08/25 04:20
IV Insert/Care/Rem.- Treatment PRN
04/08/25 04:23
CT Abd/pelvis W Iv Cont Urgent
Comment:
Reason For Exam: lower abd pain
04/08/25 04:52
Complete Blood Count/With Diff Urgent
Comprehensive Metabolic Panel Urgent
Lactic Acid Urgent
Lipase Urgent
04/08/25 06:39
Urinalysis Reflex To Culture Urgent
Date Specimen was Collected: 04/08/25
Time Specimen was Collected: 04:20
Abnormal Lab Results
04/08/25
04:52
Absolute Neuts (auto) 6.7 H 10^3/uL
(1.4-6.5)
Absolute Monos (auto) 0.7 H 10^3/uL
(0.1-0.6)
Lymphocytes % 17.6 L %
(20.5-51.1)
Glucose 100 H mg/dl
(70-99)
04/08/25 04:52
04/08/25 04:52
Vital Signs
Initial and Last Documented VS:
Initial Vital Signs
Temp Pulse Resp BP Pulse Ox
97.7 F 51 20 166/86 100
04/08/25 04:14 04/08/25 04:14 04/08/25 04:14 04/08/25 04:14 04/08/25 04:14
Last Documented Vital Signs
Temp Pulse Resp BP Pulse Ox
97.7 F 52 16 138/87 100
04/08/25 04:14 04/08/25 07:30 04/08/25 08:00 04/08/25 08:00 04/08/25 08:00
<Sukumar Graves DO - Last Filed: 04/13/25 00:59>
*Pulse Oximetry
SaO2: 100
Oxygen Mode of Delivery: Room air
Patient hypoxic: no
*Critical Care Note
Total Time (30-74mins, 75-104mins- exclusive of procedures): Not Applicable
<Sukumar Graves DO - Last Filed: 04/13/25 00:59>
Update Note
Update Note:
NAME: SRIDEVI LAINEZ
DATE OF EXAM: 04/08/2025
Patient No: [id number]
Physician: JAMES^FRANC
Date of : 1960
Past Medical History (entered by Technologist):
Reason For Exam (entered by Technologist):
Other Notes (entered by Technologist): Patient stated with LLQ abd pain @1:30 am. 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 The colostomy got reversed in January.
Additional Information (per [facility]):
CT abdomen and pelvis with IV contrast
IMPRESSION:
Bladder is distended. Mild bilateral hydroureteronephrosis without stone. Correlate with urinalysis and correlate clinically for urinary retention.
Status post sigmoid colectomy. No bowel obstruction or perforation. No cholecystitis or pancreatitis. HEAT PUMP INSTALLER shunt catheter partially visualized.
Case finalized on 04/08/25 05:56 EDT
Yousif Mc M.D.
This report has been electronically signed and verified by the Radiologist whose name is printed above.
Spoke with Dr. León Myers, colorectal surgery. He reviewed the CAT scan. He agreed with plan for discharge.
<Sean Guallpa PA-C - Last Filed: 04/10/25 08:15>
Update Note
Update Note:
NAME: SRIDEVI LAINEZ
DATE OF EXAM: 04/08/2025
Patient No: [id number]
Physician: JAMES^SUKUMAR^Neo
Date of : 1960
Past Medical History (entered by Technologist):
Reason For Exam (entered by Technologist):
Other Notes (entered by Technologist): Patient stated with LLQ abd pain @1:30 am. 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 The colostomy got reversed in January.
Additional Information (per [facility]):
CT abdomen and pelvis with IV contrast
IMPRESSION:
Bladder is distended. Mild bilateral hydroureteronephrosis without stone. Correlate with urinalysis and correlate clinically for urinary retention.
Status post sigmoid colectomy. No bowel obstruction or perforation. No cholecystitis or pancreatitis. HEAT PUMP INSTALLER shunt catheter partially visualized.
Case finalized on 04/08/25 05:56 EDT
Yousif Mc M.D.
This report has been electronically signed and verified by the Radiologist whose name is printed above.
Spoke with Dr. León Myers, colorectal surgery. He reviewed the CAT scan. He agreed with plan for discharge.
04/08/2025 0849AM: Took call from radiology Dr Tolentino, concerned CT may represent early appy. However, pt documented to have LLQ pain. Contacted pt by phone, he indicates his pain is mild currently, solely in the LLQ. I asked pt to palpate his RLQ,
and he denies localized pain. He has no fever, anorexia, N/V. Will advise he continue to monitor symptoms and return to the ED with any worsening pain, or RLQ pain/fever/anorexia. At this time I have a low suspicion that surgical intervention would
be considered for this imaging finding given lack of congruent history/exam.
ED Attending Note
<Sukumar Graves, DO - Last Filed: 04/13/25 00:59>
-
Portions of this chart may have been created with voice recognition software.� Occasional wrong word or��sound alike� substitutions may have occurred due to the inherent limitations of voice recognition software.
Discharge Plan
Departure
Patient Disposition: Home (Routine Discharge)
Date of Disposition: 04/08/25
Time of Disposition: 07:17
Patient with high blood pressure during this ER visit?: Yes
Condition: Good
Discharge Problem:
Abdominal pain
Instructions: Abdominal Pain, BLOOD PRESSURE
Prescriptions:
No Action
De3 Dry Eye [employer] Benefits 800 mg-186.67 mg-8.33 mcg Capsule
1 - 3 cap PO DAILY
Referrals:
Derian Peterson MD [Family Provider, [facility]]
Activity Restrictions/Additional Instructions:
Thank You for choosing [facility].
It was a pleasure meeting you and taking part in your care. We hope for your continued healing and wellness.
Please read discharge instructions in their entirety. However, they are for general education and may not describe your exact diagnosis at discharge. Information on your ER visit and medical conditions were discussed with you along with appropriate
follow up information...
If indicated, please take your medications as instructed and indicated on discharge paperwork.
Please schedule a follow up appointment as directed. Call to schedule an appointment
Please return to the emergency department with ANY change in, persisting, or worsening of symptoms. If any of your symptoms do not improve, or persist, or become more severe within 6-12 hours, please return to the emergency department for further
care.
Please return to the emergency department if you develop a headache, neck pain/stiffness, fever greater than 100.4F, chest pain, shortness of breath, persistent nausea, vomiting, slurred speech, difficulty walking, numbness/tingling, weakness, signs
of infection or any other symptoms that are worrisome to you.
If you have any questions or concerns please do not hesitate to call the Hospital at .
Interventions
Interventions:
*Risk Screen - Suicide Last Done: 04/08/25 04:14
*General Assessment Last Done: 04/08/25 04:14
*Neglect/Abuse Screening Last Done: 04/08/25 04:14
*ED- Fall Risk Assessment Last Done: 04/08/25 04:14
*ED COVID-19 Vaccine History Last Done: 04/08/25 04:14
*ED Influenza Vaccine History Last Done: 04/08/25 04:14
*Nursing Disposition Last Done: 04/08/25 08:30
BH-Yxslrl-Adzpynamje Assessment Last Done: 04/08/25 04:20
Discharge Date and Time
Discharge Date/Time: 04/08/25 08:31
Print Language: GUATEMALAN
[2025-04-08 07:22] LABS: Urine Character Clear (Clear)
== END 2025-04-08 08:31 | disposition home or self-care (01) ==
LOC: EMR 04:10
PROVIDERS: EMERGENCY PHYSICIAN Student in an Organized Health Care Education/Training Program; FAMILY PHYSICIAN Family Medicine
DX: R10.32 Left lower quadrant pain (principal); R03.0 Elevated blood-pressure reading, without diagnosis of hypertension
CPT/HCPCS: 99284; 74177; 80053; 81003; 83605; 83690; 85025; Q9967